=== PATIENT | male | born 1975 | race African-American/Black ===

== ENCOUNTER 2018-03-26 22:55 | Emergency (ER) | payer BC ==
[2018-03-26] MEDS ORDERED: MORPHINE SULFATE 10 MG/ML INJ IV ONE (23:42)
[2018-03-26] MEDS ORDERED: ONDANSETRON 4 MG TAB.RAPDIS PO ONE (23:42)
[2018-03-26] MEDS ORDERED: ACETAMINOPHEN 325 MG TABLET PO ONE (23:45)
--- NOTE | 2018-03-26 23:45 | ER Document Report ---
ED General - General Chief Complaint: Abdominal Pain Stated Complaint: ABDOMINAL PAIN Time Seen by Provider: 03/26/18 23:21 Mode of Arrival: Ambulatory Information source: Patient Notes: 42-year-old male presents emergency department with complaints of left lower quadrant pain that started this morning. He describes the pain is an aching sensation. He denies any radiation of the pain. He denies any alleviating or exacerbating factors. Patient has been taking ibuprofen without relief of symptoms. He denies any testicular pain, penile pain, penile discharge, dysuria , hematuria, melena, hematochezia, vomiting, diarrhea, constipation. Patient states that he has some intermittent nausea. Patient has a history of diverticulitis. He states that his current pain feels similar to previous. TRAVEL OUTSIDE OF THE [place] IN LAST 30 DAYS: No - HPI Onset: This morning Onset/Duration: Gradual Quality of pain: Achy, Throbbing Severity: Mild Associated symptoms: Nausea Exacerbated by: Denies Relieved by: Denies Similar symptoms previously: Yes Recently seen / treated by doctor: No - Related Data Allergies/Adverse Reactions: No Known Allergies Allergy (Verified 02/22/16 11:59) Past Medical History - Social History Smoking Status: Current Every Day Smoker Family History: Reviewed & Not Pertinent - Past Medical History Cardiac Medical History: Denies: Hx Coronary Artery Disease, Hx Heart Attack, Hx Hypertension Pulmonary Medical History: Denies: Hx Asthma, Hx Bronchitis, Hx COPD, Hx Pneumonia Neurological Medical History: Reports: Hx Migraine. Denies: Hx Cerebrovascular Accident, Hx Seizures GI Medical History: Reports: Hx Diverticulitis Musculoskeletal Medical History: Denies Hx Arthritis - Immunizations Hx Diphtheria, Pertussis, Tetanus Vaccination: Yes Review of Systems - Review of Systems Constitutional: No symptoms reported EENT: No symptoms reported Cardiovascular: No symptoms reported Respiratory: No symptoms reported Gastrointestinal: Abdominal pain, Nausea Genitourinary: No symptoms reported Male Genitourinary: No symptoms reported Musculoskeletal: No symptoms reported Skin: No symptoms reported Hematologic/Lymphatic: No symptoms reported Neurological/Psychological: No symptoms reported -: Yes All other systems reviewed and negative Physical Exam - Vital signs Vitals: Temp Pulse Resp BP Pulse Ox 100.1 F 95 18 123/71 98 03/26/18 22:59 03/26/18 22:59 03/26/18 22:59 03/26/18 22:59 03/26/18 22:59 - General Notes: PHYSICAL EXAMINATION: GENERAL: Well-appearing, well-nourished and in no acute distress. HEAD: Atraumatic, normocephalic. EYES: Pupils equal round and reactive to light, extraocular movements intact, sclera anicteric, conjunctiva are normal. ENT: Nares patent, oropharynx clear without exudates. Moist mucous membranes. NECK: Normal range of motion, supple without lymphadenopathy LUNGS: Breath sounds clear to auscultation bilaterally and equal. No wheezes rales or rhonchi. HEART: Regular rate and rhythm without murmurs ABDOMEN: Soft, tenderness to palpation in the LLQ. No rebound or guarding. Musculoskeletal: Normal range of motion, no pitting or edema. No cyanosis. NEUROLOGICAL: Cranial nerves grossly intact. Normal speech, normal gait. Normal sensory, motor exams PSYCH: Normal mood, normal affect. SKIN: Warm, Dry, normal turgor, no rashes or lesions noted. Course - Re-evaluation Re-evalutation: 03/27/18 01:43 Labs and imaging obtained. WBC elevated. CT abd/pel shows diverticulitis. Vitals stable. I discussed admission vs discharge with the patient. He says he wants to try outpatient treatment. He declines admission at this time. He's been able to keep fluids down. Pain is controlled. I will send him home with rx for zofran, norco, ciprofloxacin and flagyl. I will provide surgery referral. Patient told to return immediately if he's having fever, chills, worsening pain , inability to keep fluids down. Patient - Vital Signs Vital signs: Temp Pulse Resp BP Pulse Ox 100.1 F 95 18 123/71 98 03/26/18 22:59 03/26/18 22:59 03/26/18 22:59 03/26/18 22:59 03/26/18 22:59 - Laboratory Result Diagrams: 03/26/18 00:05 03/26/18 00:05 Laboratory results interpreted by me: 03/26/18 00:05 WBC 16.2 H Seg Neutrophils % 82.3 H Lymphocytes % 12.1 L Absolute Neutrophils 13.4 H Discharge - Discharge Clinical Impression: Diverticulitis Condition: Good Disposition: HOME, SELF-CARE Instructions: Diverticulitis ([facility]) Prescriptions: Ciprofloxacin HCl [Cipro 500 mg Tablet] 500 mg PO BID #14 tablet Hydrocodone/Acetaminophen [[place] 5-325 Tablet] 1 each PO Q4 #10 tablet Metronidazole [Flagyl 500 mg Tablet] 500 mg PO BID #14 tablet Ondansetron [Zofran Odt 4 mg Tablet] 1 tab PO Q4H PRN #15 tab.rapdis PRN Reason: For Nausea/Vomiting Forms: Return to Work Referrals: EDGAR LOPEZ MD [MANAGER CLEANING] - Follow up as needed CLARENCE DONALD MD [ACTIVE STAFF] - Follow up as needed
[2018-03-27 00:24] LABS: ABSOLUTE BASOPHILS # (AUTO) 0.1 10^3/uL (0.0-0.2); ABSOLUTE EOSINOPHILS # (AUTO) 0.1 10^3/uL (0.0-0.6); ABSOLUTE MONOCYTES (AUTO) 0.7 10^3/uL (0.1-1.4); ABSOLUTE NEUT (AUTO) 13.4 10^3/uL (1.7-8.2); BASOPHILS % (AUTO) 0.4 % (0-2); EOSINOPHILS % (AUTO) 0.7 % (0-6); HEMATOCRIT 40.4 % (37.9-51.0); HEMOGLOBIN 13.9 g/dL (13.5-17.0); LYMPHOCYTES % (AUTO) 12.1 % (13-45); MEAN CORPUSCULAR HEMOGLOBIN 27.4 pg (27.0-33.4); MEAN CORPUSCULAR HGB CONC 34.3 g/dL (32.0-36.0); MEAN CORPUSCULAR VOLUME 80 fl (80-97); MONOCYTES % (AUTO) 4.5 % (3-13); PLATELET COUNT 258 10^3/uL (150-450); RED BLOOD COUNT 5.05 10^6/uL (4.35-5.55); RED CELL DISTRIBUTION WIDTH 12.6 % (11.5-14.0); SEGMENTED NEUTROPHILS % (AUTO) 82.3 % (42-78); TOTAL CELLS COUNTED % (AUTO) 100 %; WHITE BLOOD COUNT 16.2 10^3/uL (4.0-10.5)
[2018-03-27 00:35] LABS: ALANINE AMINOTRANSFERASE 49 U/L (21-72); ALBUMIN 4.1 g/dL (3.5-5.0); ALKALINE PHOSPHATASE 92 U/L (38-126); ANION GAP 14 (5-19); ASPARTATE AMINO TRANSFERASE 50 U/L (17-59); BILIRUBIN,DIRECT 0.3 mg/dL (0.0-0.4); BILIRUBIN,TOTAL 1.3 mg/dL (0.2-1.3); BLOOD UREA NITROGEN 7 mg/dL (7-20); CALCIUM 9.5 mg/dL (8.4-10.2); CARBON DIOXIDE 25 mmol/L (22-30); CHLORIDE 103 mmol/L (98-107); GLUCOSE 97 mg/dL (75-110); LIPASE 40.3 U/L (23-300); POTASSIUM 3.6 mmol/L (3.6-5.0); SODIUM 141.5 mmol/L (137-145); TOTAL PROTEIN 7.7 g/dL (6.3-8.2)
[2018-03-27 01:23] LABS: APPEARANCE,URINE CLEAR; BILIRUBIN,URINE NEGATIVE (NEGATIVE); COLOR,URINE YELLOW; GLUCOSE, URINE NEGATIVE (NEGATIVE); KETONES,URINE NEGATIVE (NEGATIVE); LEUKOCYTE ESTERASE,URINE NEGATIVE (NEGATIVE); NITRITE,URINE NEGATIVE (NEGATIVE); PROTEIN,URINE NEGATIVE (NEGATIVE); URINE SPECIFIC GRAVITY 1.012; UROBILINOGEN,URINE NEGATIVE mg/dL (<2.0)
--- NOTE | 2018-03-27 01:38 | RADIOLOGY REPORT (SQ) ---
EXAM DESCRIPTION: CT ABDOMEN PELVIS WITH IV CONTRAST COMPLETED DATE/TME: 03/26/2018 23:41 CLINICAL HISTORY: 42 years, Male, LLQ pain COMPARISON: None. TECHNIQUE: Axial CT images of the abdomen and pelvis were obtained after demonstration of IV contrast. DLP 780 Images stored on PACS. All CT scanners at this facility use dose modulation, iterative reconstruction, and/or weight based dosing when appropriate to reduce radiation dose to as low as reasonably achievable (ALARA). [facility]: Dose Right [facility]: CareDose [facility]: Dose Right [facility]: Teradose 4D [facility]: [employer] LIMITATIONS: None. FINDINGS: The lung bases are clear. The liver, gallbladder, pancreas, spleen, and adrenal glands are unremarkable. Both kidneys appear normal. There is no evidence of hydronephrosis. There is no intraperitoneal free air or fluid. There is no lymphadenopathy. The stomach, small bowel, and appendix are normal. Diverticulosis is noted with mild thickening and stranding of the sigmoid colon. No evidence of a perforation or abscess/phlegmon formation. The urinary bladder and prostate gland are unremarkable. There are no lytic or blastic bone lesions IMPRESSION: Mild thickening of the sigmoid colon, likely due to acute diverticulitis. No evidence of a perforation or abscess/phlegmon formation. TECHNICAL DOCUMENTATION: Quality ID # 436: Final reports with documentation of one or more dose reduction techniques (e.g., Automated exposure control, adjustment of the mA and/or kV according to patient size, use of iterative reconstruction technique) 2010 [employer]- All Rights Reserved
[2018-03-27] MEDS ORDERED: METRONIDAZOLE 500 MG TABLET PO ONE (01:41)
[2018-03-27] MEDS ORDERED: CIPROFLOXACIN HCL 500 MG TABLET PO ONE (01:41)
[2018-03-27 01:51] VITALS: BP 122/60
== END 2018-03-27 02:01 | disposition home or self-care (01) ==
LOC: ER 22:55
DX: K57.92 Diverticulitis of intestine, part unspecified, without perforation or abscess without bleeding (principal); R10.32 Left lower quadrant pain; R11.0 Nausea
CPT/HCPCS: 99284; 96374; 36415; 83690; 85025; 80053; 81001; 74177; S0119; J2270

== ENCOUNTER 2018-06-13 07:59 | Emergency (ER) | payer BC ==
[2018-06-13 09:47] LABS: ABSOLUTE EOSINOPHILS # (AUTO) 0.2 10^3/uL (0.0-0.6); ABSOLUTE LYMPHOCYTES (AUTO) 1.6 10^3/uL (0.5-4.7); ABSOLUTE MONOCYTES (AUTO) 0.8 10^3/uL (0.1-1.4); ABSOLUTE NEUT (AUTO) 9.4 10^3/uL (1.7-8.2); BASOPHILS % (AUTO) 0.4 % (0-2); EOSINOPHILS % (AUTO) 1.4 % (0-6); HEMATOCRIT 45.7 % (37.9-51.0); HEMOGLOBIN 15.5 g/dL (13.5-17.0); LYMPHOCYTES % (AUTO) 13.6 % (13-45); MEAN CORPUSCULAR HEMOGLOBIN 27.2 pg (27.0-33.4); MEAN CORPUSCULAR HGB CONC 33.9 g/dL (32.0-36.0); MEAN CORPUSCULAR VOLUME 80 fl (80-97); MONOCYTES % (AUTO) 6.9 % (3-13); PLATELET COUNT 288 10^3/uL (150-450); RED BLOOD COUNT 5.69 10^6/uL (4.35-5.55); RED CELL DISTRIBUTION WIDTH 13.4 % (11.5-14.0); SEGMENTED NEUTROPHILS % (AUTO) 77.7 % (42-78); TOTAL CELLS COUNTED % (AUTO) 100 %; WHITE BLOOD COUNT 12.1 10^3/uL (4.0-10.5)
--- NOTE | 2018-06-13 09:56 | ER Document Report ---
ED General - General Chief Complaint: Abdominal Pain Stated Complaint: ABDOMINAL PAIN Time Seen by Provider: 06/13/18 09:11 Mode of Arrival: Ambulatory Information source: Patient Notes: Patient presents to the emergency department with complaints of abdominal pain that started yesterday. Reports history of diverticulitis. Reports left lower quadrant abdominal pain. Reports he had chills and felt hot yesterday. Also reports he used Metamucil to have a bowel movement and had a small bowel movement yesterday. He did strain. He believes there iwas blood on the tissue when he wiped. Denies fever and vomiting. Denies trauma. Took ibuprofen morning at approximately at 6:00. TRAVEL OUTSIDE OF THE [place] IN LAST 30 DAYS: No - HPI Onset: Yesterday Onset/Duration: Sudden, Persistent Quality of pain: Achy Severity: Severe Pain Level: 5 - Reports pain 5 out of 5 when he moves but he is okay laying still. Associated symptoms: None Exacerbated by: Movement Relieved by: Remaining still Similar symptoms previously: Yes Recently seen / treated by doctor: No - Related Data Allergies/Adverse Reactions: shellfish derived Allergy (Verified 06/13/18 09:14) Past Medical History - General Information source: Patient - Social History Smoking Status: Current Every Day Smoker Chew tobacco use (# tins/day): No Frequency of alcohol use: None Drug Abuse: None Occupation: [employer] Family History: Reviewed & Not Pertinent Patient has suicidal ideation: No Patient has homicidal ideation: No - Past Medical History Cardiac Medical History: Denies: Hx Coronary Artery Disease, Hx Heart Attack, Hx Hypertension Pulmonary Medical History: Reports: Hx Asthma - as child Denies: Hx Bronchitis, Hx COPD, Hx Pneumonia Neurological Medical History: Reports: Hx Migraine. Denies: Hx Cerebrovascular Accident, Hx Seizures Renal/ Medical History: Denies: Hx Peritoneal Dialysis GI Medical History: Reports: Hx Diverticulitis Musculoskeletal Medical History: Denies Hx Arthritis Surgical Hx: Negative - Immunizations Hx Diphtheria, Pertussis, Tetanus Vaccination: Yes Review of Systems - Review of Systems Notes: Review HPI for review of systems., All other systems negative Physical Exam - Vital signs Vitals: Temp Pulse Resp BP Pulse Ox 99.0 F 88 16 123/76 99 06/13/18 08:04 06/13/18 08:04 06/13/18 08:04 06/13/18 08:04 06/13/18 08:04 - Notes Notes: PHYSICAL EXAMINATION: GENERAL: Well-appearing and in no acute distress HEAD: Atraumatic, normocephalic. EYES: Pupils equal round , extraocular movements intact, conjunctiva are normal. ENT: nares patent, . Moist mucous membranes. NECK: Normal range of motion, supple without lymphadenopathy LUNGS: CTAB and equal. No wheezes rales or rhonchi. HEART: Regular rate and rhythm without murmurs ABDOMEN: Soft, LLQ ttp EXTREMITIES: Normal range of motion, NEUROLOGICAL: Cranial nerves grossly intact. Normal sensory/motor exams. PSYCH: Normal mood, normal affect. SKIN: Warm, Dry, normal turgor, no rashes or lesions noted Course - Re-evaluation Re-evalutation: 06/13/18 09:55 Instructed on pending labs and CT. He verbalized understanding. 06/13/18 11:24 CT of with acute sigmoid diverticulitis, WBC minimal elevation with no shift. Patient drinking p.o. fluids. Discussed treatment pain medications antinausea Cipro and Flagyl. Patient reports he does not like narcotics because he is worried about getting addicted. Patient is also requesting name of surgeon again. Patient does feel safe to go home. Patient was instructed on the importance of returning to the emergency department for increasing pain fever vomiting unable to take p.o. fluids. He verbalized understanding to all instructions. - Vital Signs Vital signs: Temp Pulse Resp BP Pulse Ox 98.3 F 66 16 100/52 L 99 06/13/18 11:40 06/13/18 11:40 06/13/18 08:04 06/13/18 11:40 06/13/18 11:40 - Laboratory Result Diagrams: 06/13/18 09:21 06/13/18 09:21 Laboratory results interpreted by me: 06/13/18 06/13/18 09:21 09:21 WBC 12.1 H RBC 5.69 H Absolute Neutrophils 9.4 H Total Protein 8.3 H - Diagnostic Test Radiology reviewed: Image reviewed, Reports reviewed - CT shows acute sigmoid diverticulitis. Discharge - Discharge Clinical Impression: Diverticulitis Abdominal pain Qualifiers: Abdominal location: left lower quadrant Qualified Code(s): R10.32 - Left lower quadrant pain Condition: Stable Disposition: HOME, SELF-CARE Instructions: Abdominal Pain ([facility]), Antinausea Medication ([facility]), Ciprofloxacin ([facility]), Diverticulitis ([facility]), Metronidazole ([facility]), Oral Narcotic Medication ([facility]) Additional Instructions: *You have been evaluated for abdominal pain, diverticulitis *Take medication as prescribed *Follow up with a primary care provider or surgeon within one week *Return to ED immediately for worsening condition, changes, needs, concerns, increased pain, fever *Return to ED if not better in 24 hours Monitor your blood pressure. Your blood pressure was elevated today. This may be because you were anxious, in pain or because you need medication. It is important to follow up with your primary care provider for full evaluation. Prescriptions: Ciprofloxacin HCl [Cipro 500 mg Tablet] 500 mg PO BID #20 tablet Hydrocodone/Acetaminophen [[place] 5-325 mg Tablet] 1 tab PO QID #15 tablet Metronidazole [Flagyl 500 mg Tablet] 500 mg PO BID #14 tablet Promethazine HCl [Phenergan 25 mg Tablet] 25 mg PO ASDIR PRN #12 tablet PRN Reason: Forms: Elevated Blood Pressure, Return to Work Referrals: [facility] [Provider Group] - Follow up in 1 week
--- NOTE | 2018-06-13 10:05 | RADIOLOGY REPORT (SQ) ---
EXAM DESCRIPTION: CT ABD/PELVIS WITH IV ONLY COMPLETED DATE/TIME: 06/13/2018 9:50 am REASON FOR STUDY: lower abd pain, hx diverticulitis, fever COMPARISON: 03/27/2018. TECHNIQUE: CT scan of the abdomen and pelvis performed using helical scanning technique with dynamic intravenous contrast injection. No oral contrast. Images reviewed with lung, soft tissue, and bone windows. Reconstructed coronal and sagittal MPR images reviewed. Delayed images for evaluation of the urinary system also acquired. All images stored on PACS. All CT scanners at this facility use dose modulation, iterative reconstruction, and/or weight based d osing when appropriate to reduce radiation dose to as low as reasonably achievable (ALARA). [facility]: Dose Right [facility]: CareDose [facility]: Dose Right [facility]: Teradose 4D [facility]: [employer] CONTRAST TYPE AND DOSE: contrast/concentration: Isovue 350.00 mg/ml; Total Contrast Delivered: 94.0 ml; Total Saline Delivered: 71.0 ml RENAL FUNCTION: None required. The patient is less than 50 years old. RADIATION DOSE: CT Rad equipment meets quality standard of care and radiation dose reduction techniq ues were employed. CTDIvol: 7.0 - 10.0 mGy. DLP: 1527 mGy-cm.. LIMITATIONS: None. FINDINGS: LOWER CHEST: No significant findings. No nodules or infiltrates. LIVER: Normal size. No masses. No dilated ducts. SPLEEN: Normal size. No focal lesions. PANCREAS: No masses. No significant calcifications. No adjacent inflammation or peripancreatic fluid collections. Pancreatic duct not dilated. GALLBLADDER: No identified stones by CT criteria. No inflammatory changes to suggest cholecystitis. ADRENAL GLANDS: No significant masses or asymmetry. RIGHT KIDNEY AND URETER: No solid masses. No significant calcifications. No hydronephrosis or hyd roureter. LEFT KIDNEY AND URETER: No solid masses. No significant calcifications. No hydronephrosis or hydr oureter. AORTA AND VESSELS: No aneurysm. No dissection. Renal arteries, SMA, celiac without stenosis. RETROPERITONEUM: No retroperitoneal adenopathy, hemorrhage or masses. BOWEL AND PERITONEAL CAVITY: Numerous sigmoid diverticuli with thickening with the wall and inflammat ion in the pericolonic soft tissues. No focal fluid collections. No free fluid or peritoneal masses. APPENDIX: Normal. PELVIS: No mass. No free fluid. Normal bladder. ABDOMINAL WALL: No masses. No hernias. BONES: No significant or acute findings. OTHER: No other significant finding. IMPRESSION: 1. ACUTE SIGMOID DIVERTICULITIS. INFLAMMATORY CHANGES BUT NO ABSCESS AT THIS TIME. 2. NO OTHER SIGNIFICANT OR ACUTE FINDING IN THE ABDOMEN OR PELVIS ON CT SCAN WITH IV CONTRAST. TECHNICAL DOCUMENTATION: JOB ID: [id number] Quality ID # 436: Final reports with documentation of one or more dose reduction techniques (e.g., Au tomated exposure control, adjustment of the mA and/or kV according to patient size, use of iterative reconstruction technique) 2010 [employer]- All Rights Reserved Reading location - IP/workstation name: [email or web address]
[2018-06-13 10:08] LABS: ALANINE AMINOTRANSFERASE 57 U/L (21-72); ALBUMIN 4.7 g/dL (3.5-5.0); ALKALINE PHOSPHATASE 114 U/L (38-126); ANION GAP 10 (5-19); ASPARTATE AMINO TRANSFERASE 38 U/L (17-59); BILIRUBIN,DIRECT 0.1 mg/dL (0.0-0.4); BILIRUBIN,TOTAL 0.8 mg/dL (0.2-1.3); BLOOD UREA NITROGEN 8 mg/dL (7-20); CALCIUM 9.9 mg/dL (8.4-10.2); CARBON DIOXIDE 27 mmol/L (22-30); CHLORIDE 101 mmol/L (98-107); GLUCOSE 94 mg/dL (75-110); LIPASE 63.2 U/L (23-300); POTASSIUM 4.5 mmol/L (3.6-5.0); TOTAL PROTEIN 8.3 g/dL (6.3-8.2)
[2018-06-13 10:55] LABS: APPEARANCE,URINE CLEAR; BILIRUBIN,URINE NEGATIVE (NEGATIVE); COLOR,URINE YELLOW; GLUCOSE, URINE NEGATIVE (NEGATIVE); KETONES,URINE NEGATIVE (NEGATIVE); LEUKOCYTE ESTERASE,URINE NEGATIVE (NEGATIVE); NITRITE,URINE NEGATIVE (NEGATIVE); PROTEIN,URINE NEGATIVE (NEGATIVE); URINE SPECIFIC GRAVITY 1.011; UROBILINOGEN,URINE NEGATIVE mg/dL (<2.0)
[2018-06-13] MEDS ORDERED: ONDANSETRON 4 MG TAB.RAPDIS PO ONE (11:09)
[2018-06-13] MEDS ORDERED: METRONIDAZOLE 500 MG TABLET PO ONE (11:09)
[2018-06-13] MEDS ORDERED: CIPROFLOXACIN HCL 500 MG TABLET PO ONE (11:09)
[2018-06-13 11:45] VITALS: BP 100/52
== END 2018-06-13 11:45 | disposition home or self-care (01) ==
LOC: ER 07:59
DX: K57.92 Diverticulitis of intestine, part unspecified, without perforation or abscess without bleeding (principal); R10.31 Right lower quadrant pain; R10.32 Left lower quadrant pain; F17.200 Nicotine dependence, unspecified, uncomplicated; Z91.013 Allergy to seafood
CPT/HCPCS: 83690; 99284; 36415; 85025; 80053; 81001; 74177; S0119

== ENCOUNTER 2018-08-05 06:44 | Day surgery (SDC) | payer BC ==
[~2018-08-05 06:44] MED LIST: LACTATED RINGERS 1000 ML IV PRN; LIDOCAINE 0.5% INJ-PF (5 MG/ML) 50 ML SDV SUBCUT PRN
[2018-08-05] MEDS ORDERED: PROPOFOL INJ 200 MG/20 ML VIAL IV ONE ×3 (07:21→11:21)
[2018-08-05] MEDS ORDERED: LIDOCAINE 2% INJ-PF (100 MG/5 ML) SYRINGE ONE (07:21)
[2018-08-05] MEDS ORDERED: PROMETHAZINE HCL INJ 25 MG/1 ML VIAL IV PRN ×2 (09:48)
[2018-08-05] MEDS ORDERED: DIPHENHYDRAMINE HCL 50 MG/ML VIAL IV PRN (09:48)
--- NOTE | 2018-08-05 09:58 | Discharge Summary ---
Discharge Summary (SDC) - Discharge Final Diagnosis: #1 colon polyp. #2 diverticulosis Date of Surgery: 08/05/18 Discharge Date: 08/05/18 Condition: Stable Treatment or Instructions: Discharge home. Diet as tolerated. Activity: Nonstrenuous. Follow-up with me in 2 weeks. Discharge Diet: As Tolerated Respiratory Treatments at Home: Deep Breathing/Coughing, Incentive Spirometer Discharge Activity: Balance Activity w/Rest Home Care Assistance: None Needed Report the Following to Your Physician Immediately: Shortness of Breath, Nausea, Vomiting, Increase in Pain, Fever over 101 Degrees, Unusual Bleeding, Redness
--- NOTE | 2018-08-05 10:02 | Operative Report ---
Nonrecallable Operative Report DATE OF SURGERY: 08/05/18 PREOPERATIVE DIAGNOSIS: History of diverticulitis POSTOPERATIVE DIAGNOSIS: 1. Same as above. 2. Large, sessile polyp of the cecum removed piecemeal OPERATION: 1. Colonoscopy to the cecum. 2. Snare polypectomy of large, sessile cecal polyp (removed in piecemeal fashion) SURGEON: LENIN DURAND ANESTHESIA: LMAC TISSUE REMOVED OR ALTERED: Large, sessile polyp removed in piecemeal fashion COMPLICATIONS: None apparent ESTIMATED BLOOD LOSS: Minimal PROCEDURE: Procedure in detail: After informed consent was obtained, the patient was brought to the operating room and laid in the left lateral decubitus position. The endoscope was passed up the rectum, sigmoid colon, descending colon, across the transverse colon, down the ascending colon, and into the cecum. The ileocecal valve and appendiceal orifice were identified. The scope was then withdrawn, circumferentially noting the mucosa. The prep was very good. In the cecum there was a large, flat sessile polyp. It was felt that the polyp could be removed piecemeal using a hexagonal snare. This was successfully performed. Once no more adenomatous tissue could be identified, the scope was withdrawn past the ascending colon, transverse colon, descending colon, and into the sigmoid colon. In the sigmoid colon scattered diverticula were found throughout. There is no sign of active diverticulitis. The scope was withdrawn down the sigmoid colon and into the rectum. A retroflexion maneuver was performed, noting no significant internal hemorrhoids. The scope was straightened, air was suctioned from the rectum, the scope was removed, and the procedure was concluded. Condition: Stable. Recommendation: Repeat colonoscopy in 3-6 months to ensure complete removal of large, sessile cecal polyp.
[2018-08-05 11:21] VITALS: BP 107/77
== END 2018-08-05 11:00 | disposition home or self-care (01) ==
LOC: OROUT 06:44
PROVIDERS: ATTEND Surgery
DX: K57.30 Diverticulosis of large intestine without perforation or abscess without bleeding (principal); F17.210 Nicotine dependence, cigarettes, uncomplicated; D12.0 Benign neoplasm of cecum
CPT/HCPCS: 45385; 88305 ×2; J2001; J2704; 811

== ENCOUNTER 2018-08-06 16:48 | Inpatient (IN) | payer BC ==
[2018-08-06] MEDS ORDERED: MORPHINE SULFATE 10 MG/ML INJ IV ONE (16:56)
[2018-08-06] MEDS ORDERED: HYDROMORPHONE HCL INJ/PF 2 MG/ML AMPULE IV ONE (17:14)
[2018-08-06] MEDS ORDERED: DIPHENHYDRAMINE HCL 50 MG/ML VIAL IV ONE (17:19)
--- NOTE | 2018-08-06 17:35 | ER Document Report ---
ED General - General Chief Complaint: Abdominal Pain Stated Complaint: ABDOMINAL PAIN Time Seen by Provider: 08/06/18 17:05 Mode of Arrival: Ambulatory Information source: Patient, Relative, [facility] Records Notes: 42-year-old male with a history of diverticulitis presents with complaint of right lower quadrant abdominal pain that started last night. Patient underwent a colonoscopy, polypectomy yesterday with Dr. Galindo. states that patient was doing well until approximately 10 PM when he started complaining of right lower quadrant abdominal pain. Patient was given Tylenol for this pain and this morning when he tried to go to work the pain became worse. Patient has been passing gas denies any black or bloody stools but states a few hours prior to arrival the pain became so intense he ate was unable to tolerate it. They did touch base with Dr. Galindo who ordered a stat CT of the abdomen and pelvis. TRAVEL OUTSIDE OF THE [place] IN LAST 30 DAYS: Yes - Related Data Allergies/Adverse Reactions: shellfish derived Allergy (Verified 08/05/18 07:10) Past Medical History - General Information source: Patient, Relative - Social History Smoking Status: Never Smoker Frequency of alcohol use: None Lives with: Spouse/Significant other Family History: Reviewed & Not Pertinent - Past Medical History Cardiac Medical History: Denies: Hx Coronary Artery Disease, Hx Heart Attack, Hx Hypertension Pulmonary Medical History: Reports: Hx Asthma - as child Denies: Hx Bronchitis, Hx COPD, Hx Pneumonia Neurological Medical History: Reports: Hx Migraine. Denies: Hx Cerebrovascular Accident, Hx Seizures Renal/ Medical History: Denies: Hx Peritoneal Dialysis GI Medical History: Reports: Hx Diverticulitis Musculoskeletal Medical History: Denies Hx Arthritis - Immunizations Hx Diphtheria, Pertussis, Tetanus Vaccination: Yes Review of Systems - Review of Systems Notes: REVIEW OF SYSTEMS: CONSTITUTIONAL : Denies fever, chills, or sweats. Denies recent illness. Denies weight loss, recent hospitalizations. EENT: Denies visual changes, eye pain. Denies sore throat, oral lesions, difficulty swallowing. CARDIOVASCULAR: Denies chest pain. Denies palpitations. Denies lower extremity edema. RESPIRATORY: Denies cough. Denies shortness of breath, wheezing. GASTROINTESTINAL: Denies abdominalr distention. Denies vomiting, or diarrhea. Denies blood in vomitus, stools, or per rectum. Denies black, tarry stools. Denies constipation. GENITOURINARY: Denies difficulty urinating, painful urination, frequency, blood in urine, testicular pain or penile discharge. MUSCULOSKELETAL: Denies back or neck pain or stiffness. Denies joint pain or swelling. SKIN: Denies rash, lesions or sores. HEMATOLOGIC : Denies easy bruising or bleeding. LYMPHATIC: Denies swollen glands. NEUROLOGICAL: Denies confusion or altered mental status. Denies loss of con sciousness. Denies dizziness or lightheadedness. Denies headache. Denies weakness or paralysis. Denies problems difficulty with ambulation, slurred speech. Denies sensory loss, numbness, or tingling. Denies seizures. PSYCHIATRIC: Denies anxiety or stress. Denies depression, suicidal ideation, or Physical Exam - Vital signs Vitals: Temp Resp BP Pulse Ox 97.9 F 18 137/85 H 99 08/06/18 16:50 08/06/18 16:50 08/06/18 16:50 08/06/18 16:50 - Notes Notes: General appearance: PRESENT: mild distress - Abdominal pain Head exam: PRESENT: atraumatic, normocephalic Eye exam: PRESENT: EOMI, PERRLA. ABSENT: scleral icterus Mouth exam: PRESENT: moist, neck supple Teeth exam: ABSENT: poor dentation Neck exam: ABSENT: meningismus, tenderness, thyromegaly, tracheal deviation Respiratory exam: PRESENT: clear to auscultation len, unlabored. ABSENT: chest wall tenderness, tachypnea, wheezes Cardiovascular exam: PRESENT: RRR Pulses: PRESENT: normal radial pulses Vascular exam: PRESENT: normal capillary refill. ABSENT: pallor GI/Abdominal exam: PRESENT: guarding - Voluntary, right lower quadrant, soft, tenderness - Right lower quadrant. ABSENT: distended, rigid Rectal exam: PRESENT: deferred Extremities exam: ABSENT: clubbing Musculoskeletal exam: ABSENT: deformity Neurological exam: PRESENT: alert, awake, oriented to person, oriented to place, oriented to time, oriented to situation Psychiatric exam: ABSENT: agitated, anxious, depressed Focused psych exam: ABSENT: delusional Skin exam: ABSENT: cyanosis, erythema, jaundice Course - Re-evaluation Re-evalutation: 08/07/18 00:10 Laboratory 08/06/18 08/06/18 16:50 16:50 WBC Cancelled RBC Cancelled Hgb Cancelled Hct Cancelled MCV Cancelled MCH Cancelled MCHC Cancelled RDW Cancelled Plt Count Cancelled Seg Neutrophils % Cancelled Lymphocytes % Cancelled Monocytes % Cancelled Eosinophils % Cancelled Basophils % Cancelled Absolute Neutrophils Cancelled Absolute Lymphocytes Cancelled Absolute Monocytes Cancelled Absolute Eosinophils Cancelled Absolute Basophils Cancelled Platelet Estimate Cancelled Sodium Cancelled Potassium Cancelled Chloride Cancelled Carbon Dioxide Cancelled Anion Gap Cancelled BUN Cancelled Creatinine Cancelled Est GFR ( Amer) Cancelled Est GFR (Non-Af Amer) Cancelled Glucose Cancelled Calcium Cancelled Slides for Path Review Cancelled Temp Pulse Resp BP Pulse Ox 99.1 F 84 18 119/71 97 08/06/18 22:53 08/06/18 22:53 08/06/18 22:53 08/06/18 22:53 08/06/18 22:53 42 year old male postoperative day 1 status post colonoscopy with polypectomy at the cecum. The patient reports increasing abdominal pain starting yesterday evening in his right lower quadrant, and becoming severe. The patient presented to his surgeon's office today and was sent to the hospital for a CAT scan. The patient had such excruciating pain while drinking oral contrast that he was sent to the emergency department. The patient has undergone CT scanning. Dr. Galindo presents at the bedside and examined the patient admitted him for observation overnight. States that he did review the CAT scan that did not any evidence of perforation, appendicitis. 08/07/18 00:11 - Vital Signs Vital signs: Temp Pulse Resp BP Pulse Ox 99.1 F 84 18 119/71 97 08/06/18 22:53 08/06/18 22:53 08/06/18 22:53 08/06/18 22:53 08/06/18 22:53 - Laboratory Result Diagrams: 08/06/18 19:01 08/06/18 19:01 - Diagnostic Test Radiology reviewed: Image reviewed Discharge - Discharge Clinical Impression: Abdominal pain Qualifiers: Abdominal location: right lower quadrant Qualified Code(s): R10.31 - Right lower quadrant pain Condition: Good Disposition: ADMITTED OBSERVATION Admitting Provider: Surgicalist Unit Admitted: Surgical Floor
[2018-08-06] MEDS ORDERED: ONDANSETRON HCL INJ/PF 4 MG/2 ML SDV IV PRN (18:00)
--- NOTE | 2018-08-06 18:19 | PDOC H&P ---
History of Present Illness Admission Date/PCP: LENIN DURAND MD Patient complains of: Right lower quadrant pain History of Present Illness: KALPESH ERICKSON is a 42 year old male postoperative day 1 status post colonoscopy with polypectomy at the cecum. The patient reports increasing abdominal pain starting this morning in his right lower quadrant, and becoming severe. The patient presented to the office today and was sent for a CT scan of the abdomen and pelvis with contrast. The patient had such excruciating pain while drinking oral contrast that he was sent to the emergency department. The patient has undergone CT scanning. The patient reports his pain is sharp and stabbing and situated in his right lower quadrant. The the pain does not radiate. Palpation makes his pain worse. Nothing makes it better. The patient denies shortness of breath, fevers, chills, chest pain, nausea, vomiting, melena, hematochezia, hematemesis, dizziness, orthostasis, blurry vision, fatigue, or malaise. Past Medical History Cardiac Medical History: Denies: Coronary Artery Disease, Myocardial Infarction, Hypertension Pulmonary Medical History: Reports: Asthma - as child Denies: Bronchitis, Chronic Obstructive Pulmonary Disease (COPD), Pneumonia Neurological Medical History: Reports: Migraine Denies: Seizures GI Medical History: Reports: Diverticulitis Musculoskeltal Medical History: Denies: Arthritis Hematology: Denies: Anemia Past Surgical History Past Surgical History: Reports: Other - Colonoscopy, cataract surgery Social History Smoking Status: Current Every Day Smoker Cigarettes Packs Per Day: 1 Frequency of Alcohol Use: Occasional Hx Recreational Drug Use: No Family History Family History: Reviewed & Not Pertinent Parental Family History Reviewed: Yes Children Family History Reviewed: Yes Sibling(s) Family History Reviewed.: Yes Medication/Allergy Home Medications: Psyllium Husk [Metamucil] 0.4 gm PO ASDIR PRN 07/24/18 Allergies/Adverse Reactions: shellfish derived Allergy (Verified 08/05/18 07:10) Review of Systems Constitutional: ABSENT: anorexia, chills, fatigue, fever(s), headache(s), night sweats Eyes: ABSENT: visual disturbances Ears: ABSENT: hearing changes Nose, Mouth, and Throat: ABSENT: sore throat Cardiovascular: ABSENT: chest pain, dyspnea on exertion Respiratory: ABSENT: cough, dyspnea Gastrointestinal: PRESENT: abdominal pain. ABSENT: diarrhea, dysphagia, heartburn, hematemesis, hematochezia, melena, nausea, vomiting Musculoskeletal: ABSENT: back pain Integumentary: ABSENT: pruritus, rash Neurological: ABSENT: confusion, convulsions, dizziness Psychiatric: ABSENT: anxiety, depression Hematologic/Lymphatic: ABSENT: easy bleeding, easy bruising Physical Exam Vital Signs: Temp Pulse Resp BP Pulse Ox 97.9 F 18 137/85 H 99 08/06/18 16:50 08/06/18 16:50 08/06/18 16:50 08/06/18 16:50 Intake & Output 08/05/18 08/06/18 08/07/18 06:59 06:59 06:59 Weight 77.111 kg General appearance: PRESENT: mild distress - Abdominal pain Head exam: PRESENT: atraumatic, normocephalic Eye exam: PRESENT: EOMI, PERRLA. ABSENT: scleral icterus Mouth exam: PRESENT: moist, neck supple Teeth exam: ABSENT: poor dentation Neck exam: ABSENT: meningismus, tenderness, thyromegaly, tracheal deviation Respiratory exam: PRESENT: clear to auscultation len, unlabored. ABSENT: chest wall tenderness, tachypnea, wheezes Cardiovascular exam: PRESENT: RRR Pulses: PRESENT: normal radial pulses Vascular exam: PRESENT: normal capillary refill. ABSENT: pallor GI/Abdominal exam: PRESENT: guarding - Voluntary, right lower quadrant, soft, tenderness - Right lower quadrant. ABSENT: distended, rigid Rectal exam: PRESENT: deferred Extremities exam: ABSENT: clubbing Musculoskeletal exam: ABSENT: deformity Neurological exam: PRESENT: alert, awake, oriented to person, oriented to place, oriented to time, oriented to situation Psychiatric exam: ABSENT: agitated, anxious, depressed Focused psych exam: ABSENT: delusional Skin exam: ABSENT: cyanosis, erythema, jaundice Assessment & Plan - Diagnosis (1) S/P colonoscopy with polypectomy Is this a current diagnosis for this admission?: Yes (2) Abdominal pain Qualifiers: Abdominal location: right lower quadrant Qualified Code(s): R10.31 - Right lower quadrant pain Is this a current diagnosis for this admission?: Yes - Plan Summary Plan Summary: This is a 42-year-old male status post colonoscopy with polypectomy. The patient reports increasing amounts of right lower quadrant pain throughout the day today. His pain is severe. The patient was sent for a stat CT scan. I have personally reviewed the images of the CT scan, however the official report is not available at this time. The patient has a slight amount of thickening of the wall of the cecum. His appendix appears normal and filled with air. There is no free fluid or free air. Labs have been drawn and are pending (CBC and BMP). 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 I will start the patient on intravenous antibiotics and IV pain medicine. I will observe the patient overnight. Currently the patient's blood pressure is normal, and his heart rate is in the lower 90s. He is afebrile, and he has no signs of systemic toxicity. If the patient improves with bowel rest and antibiotics, he may be fit for discharge tomorrow. If his condition worsens, he may require ileocecectomy. Close observation will be initiated. I have discussed the case with Dr. Hendrix who is on-call tonight. He is aware of the patient. I have urged the nursing staff to contact me or Dr. Hendrix if the patient's condition worsens.
[2018-08-06] MEDS: PIPERACILLIN SODIUM/TAZOBACTAM 3.375 GM in NORMAL SALINE 100 ML IV SCH ×2 (18:46→23:17)
[2018-08-06 19:10] LABS: ABSOLUTE EOSINOPHILS # (AUTO) 0.1 10^3/uL (0.0-0.6); ABSOLUTE LYMPHOCYTES (AUTO) 1.6 10^3/uL (0.5-4.7); ABSOLUTE MONOCYTES (AUTO) 0.7 10^3/uL (0.1-1.4); ABSOLUTE NEUT (AUTO) 8.1 10^3/uL (1.7-8.2); BASOPHILS % (AUTO) 0.4 % (0-2); EOSINOPHILS % (AUTO) 1.3 % (0-6); HEMATOCRIT 38.4 % (37.9-51.0); HEMOGLOBIN 13.4 g/dL (13.5-17.0); LYMPHOCYTES % (AUTO) 15.3 % (13-45); MEAN CORPUSCULAR HEMOGLOBIN 27.7 pg (27.0-33.4); MEAN CORPUSCULAR HGB CONC 34.9 g/dL (32.0-36.0); MEAN CORPUSCULAR VOLUME 79 fl (80-97); MONOCYTES % (AUTO) 6.6 % (3-13); PLATELET COUNT 226 10^3/uL (150-450); RED BLOOD COUNT 4.84 10^6/uL (4.35-5.55); RED CELL DISTRIBUTION WIDTH 13.1 % (11.5-14.0); SEGMENTED NEUTROPHILS % (AUTO) 76.4 % (42-78); TOTAL CELLS COUNTED % (AUTO) 100 %; WHITE BLOOD COUNT 10.5 10^3/uL (4.0-10.5)
[2018-08-06] MEDS: DEXTROSE 5%-LACTATED RINGERS 1,000 ML IV PRN (20:25)
[2018-08-06] MEDS: HYDROMORPHONE HCL INJ/PF 2 MG/ML AMPULE IV PRN (20:30)
[2018-08-06 20:45] LABS: ANION GAP 10 (5-19); BLOOD UREA NITROGEN 9 mg/dL (7-20); CALCIUM 9.5 mg/dL (8.4-10.2); CARBON DIOXIDE 24 mmol/L (22-30); CHLORIDE 109 mmol/L (98-107); GLUCOSE 108 mg/dL (75-110); POTASSIUM 4.3 mmol/L (3.6-5.0); SODIUM 142.9 mmol/L (137-145)
[2018-08-06] MEDS ORDERED: NICOTINE 21 MG/24 HR PATCH.TD24 TD ONE (23:15)
[2018-08-07] MEDS ORDERED: ACETAMINOPHEN 325 MG TABLET PO PRN (00:18)
[2018-08-07] MEDS: HYDROMORPHONE HCL INJ/PF 2 MG/ML AMPULE IV PRN ×6 (00:31→22:38)
--- NOTE | 2018-08-07 00:56 | RADIOLOGY REPORT (SQ) ---
EXAM DESCRIPTION: CT ABDOMEN PELVIS WITH IV CONTRAST COMPLETED DATE/TME: 08/06/2018 00:00 CLINICAL HISTORY: 42 years, Male, pain COMPARISON: Prior CT from 06/13/2018 TECHNIQUE: 403 Images stored on PACS. All CT scanners at this facility use dose modulation, iterative reconstruction, and/or weight based dosing when appropriate to reduce radiation dose to as low as reasonably achievable (ALARA). [facility]: Dose Right [facility]: CareDose [facility]: Dose Right [facility]: Teradose 4D [facility]: Metrekare LIMITATIONS: None. FINDINGS: Limited evaluation of the lung bases is unremarkable. Osseous structures are grossly intact. The liver, spleen, adrenal glands, pancreas, kidneys are unremarkable. The gallbladder is present. No evidence for bowel obstruction. Wall thickening of the sigmoid colon with multiple sigmoid diverticuli. Surrounding inflammatory change consistent with diverticulitis. No discrete abscess. No free air or free fluid. The prostate appears mildly enlarged. Correlate with PSA levels. Urinary bladder is not distended, limiting its evaluation. Normal appendix. IMPRESSION: Acute sigmoid diverticulitis. No abscess, free air, or free fluid. TECHNICAL DOCUMENTATION: Quality ID # 436: Final reports with documentation of one or more dose reduction techniques (e.g., Automated exposure control, adjustment of the mA and/or kV according to patient size, use of iterative reconstruction technique) copyright 2010 [employer]- All Rights Reserved
[2018-08-07] MEDS: PIPERACILLIN SODIUM/TAZOBACTAM 3.375 GM in NORMAL SALINE 100 ML IV SCH ×4 (05:06→23:36)
--- NOTE | 2018-08-07 07:28 | PDOC PROGRESS REPORT ---
Subjective Progress Note for:: 08/07/18 Subjective:: 42 y/o M with right lower quadrant pain after colonoscopy with polypectomy. His pain is unchanged overnight. He had low-grade fevers of 99.9 overnight. He denies CP, SOB, N/V, headache. His pain is localized to the right lower quadrant. Reason For Visit: ABDOMINAL PAIN AFTER COLONSCOPY, POLYECTOMY Physical Exam Vital Signs: Temp Pulse Resp BP Pulse Ox 98.9 F 82 18 117/65 100 08/07/18 05:03 08/07/18 05:03 08/07/18 05:03 08/07/18 05:03 08/07/18 05:03 Intake & Output 08/06/18 08/07/18 08/08/18 06:59 06:59 06:59 Intake Total 300 Output Total 1000 Balance -700 Weight 77 kg General appearance: PRESENT: no acute distress Head exam: PRESENT: atraumatic, normocephalic Eye exam: PRESENT: EOMI, PERRLA. ABSENT: scleral icterus Teeth exam: ABSENT: poor dentation Neck exam: ABSENT: meningismus, tenderness, thyromegaly, tracheal deviation Respiratory exam: PRESENT: clear to auscultation len Cardiovascular exam: PRESENT: RRR Pulses: PRESENT: normal radial pulses Vascular exam: PRESENT: normal capillary refill. ABSENT: pallor GI/Abdominal exam: PRESENT: guarding - focal RLQ voluntary guarding, soft, tenderness - RLQ. ABSENT: distended, rebound, rigid Rectal exam: PRESENT: deferred Extremities exam: ABSENT: clubbing Neurological exam: PRESENT: alert, awake, oriented to person, oriented to place, oriented to time, oriented to situation, CN II-XII grossly intact Psychiatric exam: ABSENT: agitated, anxious, depressed Skin exam: ABSENT: cyanosis, erythema, jaundice Results Laboratory Results: 08/06/18 08/06/18 08/06/18 16:50 16:50 19:01 WBC Cancelled 10.5 RBC Cancelled 4.84 Hgb Cancelled 13.4 L Hct Cancelled 38.4 MCV Cancelled 79 L MCH Cancelled 27.7 MCHC Cancelled 34.9 RDW Cancelled 13.1 Plt Count Cancelled 226 Seg Neutrophils % Cancelled 76.4 Lymphocytes % Cancelled 15.3 Monocytes % Cancelled 6.6 Eosinophils % Cancelled 1.3 Basophils % Cancelled 0.4 Absolute Neutrophils Cancelled 8.1 Absolute Lymphocytes Cancelled 1.6 Absolute Monocytes Cancelled 0.7 Absolute Eosinophils Cancelled 0.1 Absolute Basophils Cancelled 0.0 Sodium Cancelled Potassium Cancelled Chloride Cancelled Carbon Dioxide Cancelled Anion Gap Cancelled BUN Cancelled Creatinine Cancelled Est GFR ( Amer) Cancelled Est GFR (Non-Af Amer) Cancelled Glucose Cancelled Calcium Cancelled 08/06/18 19:01 WBC RBC Hgb Hct MCV MCH MCHC RDW Plt Count Seg Neutrophils % Lymphocytes % Monocytes % Eosinophils % Basophils % Absolute Neutrophils Absolute Lymphocytes Absolute Monocytes Absolute Eosinophils Absolute Basophils Sodium 142.9 Potassium 4.3 Chloride 109 H Carbon Dioxide 24 Anion Gap 10 BUN 9 Creatinine 1.13 Est GFR ( Amer) > 60 Est GFR (Non-Af Amer) > 60 Glucose 108 Calcium 9.5 Impressions: Abdomen/Pelvis CT 08/06/18 00:00 IMPRESSION: Acute sigmoid diverticulitis. No abscess, free air, or free fluid. TECHNICAL DOCUMENTATION: Quality ID # 436: Final reports with documentation of one or more dose reduction techniques (e.g., Automated exposure control, adjustment of the mA and/or kV according to patient size, use of iterative reconstruction technique) copyright 2011 [employer]- All Rights Reserved Assessment & Plan - Diagnosis (1) S/P colonoscopy with polypectomy Is this a current diagnosis for this admission?: Yes (2) Abdominal pain Qualifiers: Abdominal location: right lower quadrant Qualified Code(s): R10.31 - Right lower quadrant pain Is this a current diagnosis for this admission?: Yes - Plan Summary Plan Summary: 42 y/o M s/p colonoscopy with polypectomy. He continues to have focal RLQ pain. He does not exhibit peritonitis on exam. Currently his vital signs are normal, with the exception of low-grade fever overnight. Labs are pending. continue close observation and antibiotics. If decompensation is identified surgical exploration may be required.
[2018-08-07 07:34] LABS: ANION GAP 8 (5-19); BLOOD UREA NITROGEN 8 mg/dL (7-20); CALCIUM 9.2 mg/dL (8.4-10.2); CARBON DIOXIDE 28 mmol/L (22-30); CHLORIDE 106 mmol/L (98-107); GLUCOSE 92 mg/dL (75-110); SODIUM 141.7 mmol/L (137-145)
[2018-08-07 07:41] LABS: ABSOLUTE BASOPHILS # (AUTO) 0.1 10^3/uL (0.0-0.2); ABSOLUTE EOSINOPHILS # (AUTO) 0.3 10^3/uL (0.0-0.6); ABSOLUTE LYMPHOCYTES (AUTO) 2.7 10^3/uL (0.5-4.7); ABSOLUTE MONOCYTES (AUTO) 0.8 10^3/uL (0.1-1.4); BASOPHILS % (AUTO) 0.7 % (0-2); EOSINOPHILS % (AUTO) 3.3 % (0-6); HEMATOCRIT 39.2 % (37.9-51.0); HEMOGLOBIN 13.8 g/dL (13.5-17.0); LYMPHOCYTES % (AUTO) 30.4 % (13-45); MEAN CORPUSCULAR HEMOGLOBIN 28.2 pg (27.0-33.4); MEAN CORPUSCULAR HGB CONC 35.2 g/dL (32.0-36.0); MEAN CORPUSCULAR VOLUME 80 fl (80-97); PLATELET COUNT 200 10^3/uL (150-450); RED CELL DISTRIBUTION WIDTH 13.4 % (11.5-14.0); SEGMENTED NEUTROPHILS % (AUTO) 56.6 % (42-78); TOTAL CELLS COUNTED % (AUTO) 100 %; WHITE BLOOD COUNT 8.9 10^3/uL (4.0-10.5)
[2018-08-07] MEDS: NICOTINE 21 MG/24 HR PATCH.TD24 TD SCH (09:22)
[2018-08-07] MEDS: DEXTROSE 5%-LACTATED RINGERS 1,000 ML IV PRN (13:46)
[2018-08-08] MEDS: HYDROMORPHONE HCL INJ/PF 2 MG/ML AMPULE IV PRN ×3 (03:03→12:00)
[2018-08-08] MEDS: PIPERACILLIN SODIUM/TAZOBACTAM 3.375 GM in NORMAL SALINE 100 ML IV SCH ×2 (05:19→12:20)
[2018-08-08] MEDS: DEXTROSE 5%-LACTATED RINGERS 1,000 ML IV PRN (05:19)
[2018-08-08 07:15] LABS: ABSOLUTE EOSINOPHILS # (AUTO) 0.3 10^3/uL (0.0-0.6); ABSOLUTE LYMPHOCYTES (AUTO) 2.1 10^3/uL (0.5-4.7); ABSOLUTE MONOCYTES (AUTO) 0.7 10^3/uL (0.1-1.4); ABSOLUTE NEUT (AUTO) 3.9 10^3/uL (1.7-8.2); BASOPHILS % (AUTO) 0.6 % (0-2); HEMATOCRIT 38.2 % (37.9-51.0); HEMOGLOBIN 13.4 g/dL (13.5-17.0); LYMPHOCYTES % (AUTO) 30.3 % (13-45); MEAN CORPUSCULAR HEMOGLOBIN 27.8 pg (27.0-33.4); MEAN CORPUSCULAR VOLUME 79 fl (80-97); MONOCYTES % (AUTO) 9.3 % (3-13); PLATELET COUNT 221 10^3/uL (150-450); RED BLOOD COUNT 4.81 10^6/uL (4.35-5.55); RED CELL DISTRIBUTION WIDTH 12.6 % (11.5-14.0); SEGMENTED NEUTROPHILS % (AUTO) 55.8 % (42-78); TOTAL CELLS COUNTED % (AUTO) 100 %
[2018-08-08 07:45] LABS: ANION GAP 6 (5-19); BLOOD UREA NITROGEN 6 mg/dL (7-20); CALCIUM 9.3 mg/dL (8.4-10.2); CARBON DIOXIDE 31 mmol/L (22-30); CHLORIDE 104 mmol/L (98-107); GLUCOSE 82 mg/dL (75-110); POTASSIUM 3.9 mmol/L (3.6-5.0); SODIUM 141.1 mmol/L (137-145)
--- NOTE | 2018-08-08 07:54 | PDOC PROGRESS REPORT ---
Subjective Progress Note for:: 08/08/18 Subjective:: 42 y/o M with right lower quadrant pain after colonoscopy with polypectomy. His pain has improved overnight. He reports passing flatus. He denies CP, SOB, N/V, headache. His pain is still localized to the right lower quadrant. Reason For Visit: ABDOMINAL PAIN AFTER COLONSCOPY, POLYECTOMY Physical Exam Vital Signs: Temp Pulse Resp BP Pulse Ox 99.4 F 76 18 130/74 H 98 08/08/18 03:03 08/08/18 03:03 08/08/18 03:03 08/08/18 03:03 08/08/18 03:03 Intake & Output 08/07/18 08/08/18 08/09/18 06:59 06:59 06:59 Intake Total 1300 1300 Output Total 1000 350 Balance 300 950 Weight 77 kg 81.5 kg General appearance: PRESENT: no acute distress, cooperative Head exam: PRESENT: atraumatic, normocephalic Eye exam: PRESENT: EOMI, PERRLA. ABSENT: scleral icterus Mouth exam: PRESENT: moist, neck supple Teeth exam: ABSENT: poor dentation Neck exam: ABSENT: meningismus, tenderness, thyromegaly, tracheal deviation Respiratory exam: ABSENT: rhonchi, stridor Cardiovascular exam: PRESENT: RRR Vascular exam: PRESENT: normal capillary refill GI/Abdominal exam: PRESENT: soft, tenderness - RLQ. ABSENT: distended, firm, guarding Rectal exam: PRESENT: deferred Extremities exam: ABSENT: clubbing Musculoskeletal exam: ABSENT: deformity Neurological exam: PRESENT: alert, awake, oriented to person, oriented to place, oriented to time Psychiatric exam: ABSENT: agitated, anxious, depressed Focused psych exam: ABSENT: delusional Skin exam: ABSENT: cyanosis Results Laboratory Results: 08/08/18 06:51 08/08/18 06:51 08/08/18 08/08/18 06:51 06:51 WBC 7.0 RBC 4.81 Hgb 13.4 L Hct 38.2 MCV 79 L MCH 27.8 MCHC 35.0 RDW 12.6 Plt Count 221 Seg Neutrophils % 55.8 Lymphocytes % 30.3 Monocytes % 9.3 Eosinophils % 4.0 Basophils % 0.6 Absolute Neutrophils 3.9 Absolute Lymphocytes 2.1 Absolute Monocytes 0.7 Absolute Eosinophils 0.3 Absolute Basophils 0.0 Sodium 141.1 Potassium 3.9 Chloride 104 Carbon Dioxide 31 H Anion Gap 6 BUN 6 L Creatinine 1.26 H Est GFR ( Amer) > 60 Est GFR (Non-Af Amer) > 60 Glucose 82 Calcium 9.3 Impressions: Abdomen/Pelvis CT 08/06/18 00:00 IMPRESSION: Acute sigmoid diverticulitis. No abscess, free air, or free fluid. TECHNICAL DOCUMENTATION: Quality ID # [id number]: Final reports with documentation of one or more dose reduction techniques (e.g., Automated exposure control, adjustment of the mA and/or kV according to patient size, use of iterative reconstruction technique) copyright 2011 [employer]- All Rights Reserved Assessment & Plan - Diagnosis (1) S/P colonoscopy with polypectomy Is this a current diagnosis for this admission?: Yes (2) Abdominal pain Qualifiers: Abdominal location: right lower quadrant Qualified Code(s): R10.31 - Right lower quadrant pain Is this a current diagnosis for this admission?: Yes - Plan Summary Plan Summary: 42 y/o M with polypectomy syndrome. WBC's and diff consistently normal, pt reports pain is improving. He is hungry and requesting a diet. Advance to full liquids. Start stool softeners. Cont Abx.
[2018-08-08] MEDS: NICOTINE 21 MG/24 HR PATCH.TD24 TD SCH (10:48)
--- NOTE | 2018-08-08 18:26 | PDOC DISCHARGE SUMMARY ---
General - Admit/Disc Date/PCP Admission Date/Primary Care Provider: 08/08/18 11:56 Discharge Date: 08/08/18 - Discharge Diagnosis (1) S/P colonoscopy with polypectomy Is this a current diagnosis for this admission?: Yes (2) Abdominal pain Is this a current diagnosis for this admission?: Yes - Additional Information Discharge Diet: As Tolerated Discharge Activity: Balance Activity w/Rest Home Medications: Latanoprost [Xalatan 0.005% Oph Soln 2.5 ml] 1 drop OU QHS 08/06/18 History of Present Illness History of Present Illness: KALPESH ERICKSON is a 42 year old male postoperative day 1 status post colonoscopy with polypectomy at the cecum. The patient reports increasing abdominal pain starting the day after colonoscopy in his right lower quadrant, that became severe. The patient presented to the office and was sent for a CT scan of the abdomen and pelvis with contrast. The patient had such excruciating pain while drinking oral contrast that he was sent to the emergency department. The patient reports his pain is sharp and stabbing and situated in his right lower quadrant. The the pain does not radiate. Palpation makes his pain worse. Nothing makes it better. At the time of admission the patient denies shortness of breath, fevers, chills, chest pain, nausea, vomiting, melena, hematochezia, hematemesis, dizziness, orthostasis, blurry vision, fatigue, or malaise. Hospital Course Hospital Course: The patient was transferred to the floor. He was started on intravenous antibiotics and pain medication for polypectomy syndrome. The patient slowly improved. He began having bowel function. He was started on diet. By 08/08/2018, he was doing well, ambulating, tolerating a diet, and he was afebrile. At this time it was felt that he had reached maximal hospital benefit and was fit for discharge. Physical Exam Vital Signs: Temp Pulse Resp BP Pulse Ox 98.8 F 75 15 119/78 99 08/08/18 15:32 08/08/18 15:32 08/08/18 15:32 08/08/18 15:32 08/08/18 15:32 Intake & Output 08/07/18 08/08/18 08/09/18 06:59 06:59 06:59 Intake Total 1300 1300 1000 Output Total 1000 350 Balance 263 970 1818 Weight 77 kg 81.5 kg Results Laboratory Results: 08/08/18 06:51 08/08/18 06:51 08/08/18 08/08/18 06:51 06:51 WBC 7.0 RBC 4.81 Hgb 13.4 L Hct 38.2 MCV 79 L MCH 27.8 MCHC 35.0 RDW 12.6 Plt Count 221 Seg Neutrophils % 55.8 Lymphocytes % 30.3 Monocytes % 9.3 Eosinophils % 4.0 Basophils % 0.6 Absolute Neutrophils 3.9 Absolute Lymphocytes 2.1 Absolute Monocytes 0.7 Absolute Eosinophils 0.3 Absolute Basophils 0.0 Sodium 141.1 Potassium 3.9 Chloride 104 Carbon Dioxide 31 H Anion Gap 6 BUN 6 L Creatinine 1.26 H Est GFR ( Amer) > 60 Est GFR (Non-Af Amer) > 60 Glucose 82 Calcium 9.3 Impressions: Abdomen/Pelvis CT 08/06/18 00:00 IMPRESSION: Acute sigmoid diverticulitis. No abscess, free air, or free fluid. TECHNICAL DOCUMENTATION: Quality ID # [id number]: Final reports with documentation of one or more dose reduction techniques (e.g., Automated exposure control, adjustment of the mA and/or kV according to patient size, use of iterative reconstruction technique) copyright 2011 [employer]- All Rights Reserved Qualifiers - * PATIENT BEING DISCHARGED WITH ANY OF THE FOLLOWING DIAGNOSIS: No Plan Discharge Plan: Discharge home. Diet as tolerated. Activity: Nonstrenuous. Follow-up with me in 7-10 days. Augmentin 875 mg p.o. twice daily times 5 days. Flagyl 500 mg p.o. 3 times daily times 5 days. [place] 10/325 mg p.o. every 6 hours as needed for pain.
[2018-08-08 19:10] VITALS: BP 130/74
== END 2018-08-08 20:02 | disposition home or self-care (01) | DRG 392 ==
LOC: ER 16:48 → EH 18:49 → 2N 21:34 → OBSVTOIN 08-08 11:56
PROVIDERS: ATTEND Surgery
DX: R10.31 Right lower quadrant pain (principal); K57.32 Diverticulitis of large intestine without perforation or abscess without bleeding; F17.210 Nicotine dependence, cigarettes, uncomplicated; Z98.890 Other specified postprocedural states; Z86.010 Personal history of colon polyps; Z91.013 Allergy to seafood; Z23 Encounter for immunization
CPT/HCPCS: 36415; 74177; 80048; 85025; 87040; 90471; 90686; 94799; 96361; 96374; 96375; 99285; G0008; J1170; J1200; J2270; J2405; J2543

== ENCOUNTER → 2018-08-06 | Outpatient (CLI) | payer BC | LOC: RAD 15:35 | PROVIDERS: ATTEND Surgery | DX: R10.31 Right lower quadrant pain (principal); Z53.8 Procedure and treatment not carried out for other reasons ==

== ENCOUNTER 2018-10-03 06:36 | Inpatient (IN) | payer BC ==
[2018-09-26 09:52] LABS: HEMATOCRIT 42.5 % (37.9-51.0); HEMOGLOBIN 14.8 g/dL (13.5-17.0); MEAN CORPUSCULAR HEMOGLOBIN 28.2 pg (27.0-33.4); MEAN CORPUSCULAR HGB CONC 34.9 g/dL (32.0-36.0); MEAN CORPUSCULAR VOLUME 81 fl (80-97); PLATELET COUNT 264 10^3/uL (150-450); RED BLOOD COUNT 5.27 10^6/uL (4.35-5.55); RED CELL DISTRIBUTION WIDTH 13.7 % (11.5-14.0); WHITE BLOOD COUNT 5.4 10^3/uL (4.0-10.5)
--- NOTE | 2018-09-26 10:04 | RADIOLOGY REPORT (SQ) ---
EXAM DESCRIPTION: CHEST PA/LATERAL COMPLETED DATE/TIME: 09/26/2018 9:57 am REASON FOR STUDY: PRE-OP COMPARISON: 01/13/2016. EXAM PARAMETERS: NUMBER OF VIEWS: two views TECHNIQUE: Digital Frontal and Lateral radiographic views of the chest acquired. RADIATION DOSE: NA LIMITATIONS: none FINDINGS: LUNGS AND PLEURA: No opacities, masses or pneumothorax. No pleural effusion. MEDIASTINUM AND HILAR STRUCTURES: No masses or contour abnormalities. HEART AND VASCULAR STRUCTURES: Heart normal size. No evidence for failure. BONES: No acute findings. HARDWARE: None in the chest. OTHER: No other significant finding. IMPRESSION: NO SIGNIFICANT RADIOGRAPHIC FINDING IN THE CHEST. TECHNICAL DOCUMENTATION: JOB ID: [id number] [email or web address]- All Rights Reserved Reading location - IP/workstation name: [email or web address]
[2018-09-26 10:31] LABS: ANION GAP 12 (5-19); BLOOD UREA NITROGEN 6 mg/dL (7-20); CALCIUM 9.5 mg/dL (8.4-10.2); CARBON DIOXIDE 27 mmol/L (22-30); CHLORIDE 103 mmol/L (98-107); GLUCOSE 183 mg/dL (75-110)
[~2018-10-03 06:36] MED LIST changes: +CEFOXITIN SODIUM 2 GM in DEXTROSE 5%-WATER 100 ML IV PRN; +IBUPROFEN 800 MG in NORMAL SALINE 250 ML IV PRN
[2018-10-03] MEDS ORDERED: BUPIVACAINE HCL 0.25 % INJ/PF (2.5 MG/1 ML) 30 ML VIAL ONE (09:20)
[2018-10-03] MEDS ORDERED: MORPHINE SULFATE 10 MG/ML INJ ONE (09:28)
[2018-10-03] MEDS ORDERED: FENTANYL CITRATE INJ/PF 100 MCG/2 ML AMPUL ONE (09:28)
[2018-10-03] MEDS ORDERED: KETOROLAC TROMETHAMINE 60 MG/2 ML SDV ONE (09:28)
[2018-10-03] MEDS ORDERED: DEXAMETHASONE SOD PHOSPHATE INJ 4 MG/1 ML VIAL ONE (09:28)
[2018-10-03] MEDS ORDERED: EPHEDRINE SULFATE INJ 50 MG/1 ML AMPULE ONE (09:28)
[2018-10-03] MEDS ORDERED: ONDANSETRON HCL INJ/PF 4 MG/2 ML SDV ONE (09:28)
[2018-10-03] MEDS ORDERED: MIDAZOLAM 2 MG/2 ML INJ ONE (09:28)
[2018-10-03] MEDS ORDERED: ACETAMINOPHEN 1,000 MG/100 ML RTUPB IV ONE (09:29)
[2018-10-03] MEDS ORDERED: PROPOFOL INJ 200 MG/20 ML VIAL IV ONE (09:29)
[2018-10-03] MEDS ORDERED: GLYCOPYRROLATE 1 MG/5 ML SYRINGE ONE (10:06)
[2018-10-03] MEDS ORDERED: ROCURONIUM BROMIDE INJ 50 MG/5 ML VIAL IV ONE (10:06)
[2018-10-03] MEDS ORDERED: SUCCINYLCHOLINE CHLORIDE INJ 200 MG/10 ML VIAL ONE (10:06)
[2018-10-03] MEDS ORDERED: NEOSTIGMINE METHYLSULFATE 10 MG/10 ML VIAL ONE (10:06)
[2018-10-03] MEDS ORDERED: HYDRALAZINE HCL INJ/PF 20 MG/1 ML SDV ONE (11:10)
[2018-10-03] MEDS ORDERED: METOPROLOL TARTRATE PF/INJ 5 MG/5 ML SDV IV ONE (11:11)
[2018-10-03] MEDS ORDERED: FENTANYL CITRATE INJ/PF 100 MCG/2 ML AMPUL IV PRN ×3 (11:24)
[2018-10-03] MEDS ORDERED: MEPERIDINE HCL/PF INJ 25 MG/1 ML DISP.SYRIN IV PRN (11:24)
[2018-10-03] MEDS ORDERED: DIPHENHYDRAMINE HCL 50 MG/ML VIAL IV PRN (11:24)
[2018-10-03] MEDS ORDERED: PROMETHAZINE HCL INJ 25 MG/1 ML VIAL IV PRN ×2 (11:24)
[2018-10-03] MEDS ORDERED: MORPHINE SULFATE 10 MG/ML INJ IV PRN (11:24)
[2018-10-03] MEDS ORDERED: OXYCODONE-ACETAMINOPHEN 5-325 MG TABLET PO PRN ×2 (11:24)
[2018-10-03] MEDS ORDERED: ONDANSETRON HCL INJ/PF 4 MG/2 ML SDV IV PRN ×2 (11:24→15:45)
[2018-10-03] MEDS: FENTANYL CITRATE INJ/PF 100 MCG/2 ML AMPUL ONE ×2 (15:35→15:40)
[2018-10-03] MEDS ORDERED: HYDROMORPHONE HCL INJ/PF 2 MG/ML AMPULE ONE (16:11)
[2018-10-03] MEDS ORDERED: OXYCODONE-ACETAMINOPHEN 5-325 MG TABLET ONE (16:41)
[2018-10-03] MEDS ORDERED: HYDRALAZINE HCL INJ/PF 20 MG/1 ML SDV IV PRN (18:29)
--- NOTE | 2018-10-03 18:29 | Operative Report ---
Nonrecallable Operative Report DATE OF SURGERY: 10/03/18 PREOPERATIVE DIAGNOSIS: Recurrent sigmoid diverticulitis POSTOPERATIVE DIAGNOSIS: same as above OPERATION: 1. Robot assisted laparoscopic sigmoid colon resection with robot sewn colorectal anastomosis. 2. Flexible sigmoidoscopy SURGEON: LENIN BULLOCK SNAKER DRIVING HORSES: JOANIE WILL ANESTHESIA: GA TISSUE REMOVED OR ALTERED: sigmoid colon COMPLICATIONS: none apparent ESTIMATED BLOOD LOSS: 50cc PROCEDURE: Drain: 15 Fr round jacques drain in the pelvis Procedure in detail: After informed consent was obtained, the patient was brought to the operating room and laid in the supine position. The area of the abdomen was prepped and draped in a normal sterile fashion. An incision was created approximately 2 cm above and lateral to the umbilicus on the right. Dissection was carried down to the anterior abdominal wall fascia using blunt dissection. The anterior sheath was incised sharply. Retractors were used to retract the rectus muscle, and the posterior sheath was incised sharply. The balloon trocar was inserted, and pneumoperitoneum was achieved. A 12 mm right lower quadrant robotic trocar was placed under direct laparoscopic visualization. Another 8 mm left lower quadrant trocar was placed and a left lateral 8 mm trocar. These were all done under direct laparoscopic visualization. A 5 mm accounting manager assistant controller trocar was placed in the right upper quadrant. The robot was then brought over the patient and docked appropriately. I then assumed my position at the surgeon's console. A dense inflammatory reaction was found from the sigmoid colon to the anterior pelvis. Dissection was begun in a medial to lateral fashion. The mesentery was scored over the sacral promontory. The mesentery was elevated anteriorly and blunt dissection was used to identify the ureter in the left pelvis. Once the ureter was identified the sigmoid and descending colon were freed from the lateral pelvic sidewall. The distal descending colon was freely mobile, however the sigmoid colon was densely adherent to the anterior pelvis. With some difficulty the sigmoid colon was freed from the left lateral pelvic sidewall and the anterior pelvis. This was done after visualizing the ureter along its course and sparing it from injury. After the sigmoid colon was freed, the bladder was instilled with 200 cc of fluid, and no colovesical fistula could be identified. Once the sigmoid colon was completely freed, the dissection was t aken to the rectosigmoid junction. The rectosigmoid junction was then divided using the robotic stapler. Next, the mesentery was divided immediately adjacent to the bowel with the robotic vessel sealer. Next, the distal descending colon was divided using robotic scissors. There was some spillage of stool during this maneuver. The sigmoid colon was at this time completely freed and mobile. The staple line on the rectum was then excised using robotic scissors. A ring forcep was inserted into the rectum and used to grasp the freed sigmoid colon. The specimen was then extracted through the rectum. It passed easily out the rectum. Next, the descending colon was brought in apposition to the rectum. No EEA staplers were available for use due to a product recall. Secondary to this, a robotic sewn anastomosis was performed. The posterior layer of Lembert sutures was placed using 3-0 Vicryl on an SH needle. After the posterior layer was completed, the inner layer was sewn circumferentially using 20V lock suture in simple running fashion. Next, the anterior Lembert sutures were placed, also using 3-0 Vicryl suture on SH needles. Once this was completed, a flexible sigmoidoscopy was undertaken to test the anastomosis. The colon was clamped proximal to the anastomosis. The flexible endoscope was inserted into the rectum and air was insufflated into the rectum. The scope was passed up to the anastomosis. The scope easily passed through the anastomosis, confirming that there was no significant stricture. No air was found to leak out of the anastomosis. Air was found to leak out of the anus, around the scope. This confirmed that the anastomosis was air and watertight. Once this was confirmed the abdomen was copiously irrigated and suctioned until the effluent was clear. The robot was undocked, and I scrubbed back into the case. A 15 Portuguese round Jacques drain was placed through the left lower quadrant trocar and situated in the pelvis, at the level of the anastomosis. This drain was sutured to the skin using 2-0 nylon suture. Next, the right lower quadrant 12 mm trocar site fascia was closed using 0 Vicryl suture and the Endo Close device. The suture was placed in [id number] fashion. Next, the left lateral trocar was removed. The site was closed with a single interrupted 0 Vicryl suture using the Endo Close device. Next, the 5 mm trocar was removed. The 12 mm balloon trocar was removed, and pneumoperitoneum was relieved. Next, the 12 mm trocar site fascia was closed using 0 Vicryl suture in [id number] fashion, under direct vision. The overlying skin was closed using interrupted 4-0 Vicryl Rapide suture. Dressings were then placed, and the procedure was concluded. All sponge, instrument, and needle counts were correct x2. Condition: Stable. Joanie Will PA-C was scrubbed and present the entirety of the procedure. She assisted with all portions of the procedure including placement of the trochars, docking of the robot, exchanging of the robotic instruments, closure of the fascia, and closure of the skin.
[2018-10-03] MEDS: DEXTROSE 5%-LACTATED RINGERS 1,000 ML IV PRN (18:39)
[2018-10-03] MEDS: CEFOXITIN SODIUM 2 GM in DEXTROSE 5%-WATER 100 ML IV SCH (18:39)
[2018-10-03] MEDS: NICOTINE 14 MG/24 HR PATCH.TD24 TD SCH (20:37)
[2018-10-03] MEDS: OXYCODONE-ACETAMINOPHEN 5-325 MG TABLET PO PRN (20:37)
[2018-10-03] MEDS: KETOROLAC TROMETHAMINE INJ/PF 30 MG/1 ML SDV IV SCH (21:12)
[2018-10-03] MEDS: FAMOTIDINE INJ/PF 20 MG/2 ML SDV IV SCH (21:12)
[2018-10-04] MEDS: HYDROMORPHONE HCL INJ/PF 2 MG/ML AMPULE IV PRN ×3 (00:15→18:51)
[2018-10-04] MEDS: CEFOXITIN SODIUM 2 GM in DEXTROSE 5%-WATER 100 ML IV SCH ×3 (01:40→17:00)
[2018-10-04] MEDS: OXYCODONE-ACETAMINOPHEN 5-325 MG TABLET PO PRN ×3 (01:41→16:00)
[2018-10-04] MEDS: KETOROLAC TROMETHAMINE INJ/PF 30 MG/1 ML SDV IV SCH ×3 (05:42→21:10)
--- NOTE | 2018-10-04 06:41 | PDOC PROGRESS REPORT ---
Subjective Progress Note for:: 10/04/18 Reason For Visit: K57.92 DVTRCLI OF INTEST, PART UNSP, W/O PERF OR A Physical Exam Vital Signs: Temp Pulse Resp BP Pulse Ox 98.4 F 86 22 H 138/78 H 100 10/04/18 03:39 10/04/18 03:39 10/04/18 03:39 10/04/18 03:39 10/04/18 03:39 Intake & Output 10/02/18 10/03/18 10/04/18 06:59 06:59 06:59 Intake Total 6650 Output Total 5055 Balance 1595 Weight 83.3 kg Results Laboratory Results: 09/26/18 09:23 09/26/18 09:23 Impressions: Chest X-Ray 09/26/18 09:43 IMPRESSION: NO SIGNIFICANT RADIOGRAPHIC FINDING IN THE CHEST. Assessment & Plan - Diagnosis (1) Diverticulitis large intestine Qualifiers: Diverticulitis bleeding: unspecified bleeding status Diverticulitis complication: unspecified complication status Qualified Code(s): K57.32 - Diverticulitis of large intestine without perforation or abscess without bleeding Is this a current diagnosis for this admission?: Yes - Plan Summary Plan Summary: 42 y/o M s/p robot assisted laparoscopic sigmoid colon resection for recurrent diverticulitis. The pt reports pain this am. He has not yet been out of bed. OOB today. D/c garcia catheter. Aggressive pulmonary toilet. Cont Mefoxin due to intra-op spillage of stool. awaiting bowel function --> cont liquids for now. Labs pending.
[2018-10-04 07:40] LABS: ABSOLUTE LYMPHOCYTES (AUTO) 1.7 10^3/uL (0.5-4.7); ABSOLUTE MONOCYTES (AUTO) 0.8 10^3/uL (0.1-1.4); ABSOLUTE NEUT (AUTO) 13.8 10^3/uL (1.7-8.2); BASOPHILS % (AUTO) 0.1 % (0-2); HEMATOCRIT 40.6 % (37.9-51.0); LYMPHOCYTES % (AUTO) 10.3 % (13-45); MEAN CORPUSCULAR HEMOGLOBIN 27.3 pg (27.0-33.4); MEAN CORPUSCULAR HGB CONC 34.4 g/dL (32.0-36.0); MEAN CORPUSCULAR VOLUME 79 fl (80-97); MONOCYTES % (AUTO) 5.1 % (3-13); PLATELET COUNT 228 10^3/uL (150-450); RED BLOOD COUNT 5.12 10^6/uL (4.35-5.55); RED CELL DISTRIBUTION WIDTH 13.4 % (11.5-14.0); SEGMENTED NEUTROPHILS % (AUTO) 84.5 % (42-78); TOTAL CELLS COUNTED % (AUTO) 100 %; WHITE BLOOD COUNT 16.4 10^3/uL (4.0-10.5)
[2018-10-04 07:59] LABS: ANION GAP 11 (5-19); BLOOD UREA NITROGEN 11 mg/dL (7-20); CALCIUM 9.1 mg/dL (8.4-10.2); CARBON DIOXIDE 27 mmol/L (22-30); CHLORIDE 104 mmol/L (98-107); GLUCOSE 99 mg/dL (75-110); POTASSIUM 3.8 mmol/L (3.6-5.0); SODIUM 141.8 mmol/L (137-145)
[2018-10-04] MEDS: DEXTROSE 5%-LACTATED RINGERS 1,000 ML IV PRN (09:10)
[2018-10-04] MEDS: NICOTINE 14 MG/24 HR PATCH.TD24 TD SCH (09:11)
[2018-10-04] MEDS: ENOXAPARIN SODIUM INJ 40 MG/0.4 ML DISP.SYRIN SUBCUT SCH (09:12)
[2018-10-04] MEDS: FAMOTIDINE INJ/PF 20 MG/2 ML SDV IV SCH ×2 (09:12→21:10)
[2018-10-05] MEDS: DEXTROSE 5%-LACTATED RINGERS 1,000 ML IV PRN (03:54)
[2018-10-05] MEDS ORDERED: CEFOXITIN SODIUM 2 GM in DEXTROSE 5%-WATER 100 ML IV ONE ×2 (04:00→04:30)
[2018-10-05] MEDS: CEFOXITIN SODIUM 2 GM in DEXTROSE 5%-WATER 100 ML IV SCH ×3 (04:01→22:22)
[2018-10-05] MEDS: OXYCODONE-ACETAMINOPHEN 5-325 MG TABLET PO PRN (04:46)
[2018-10-05] MEDS: KETOROLAC TROMETHAMINE INJ/PF 30 MG/1 ML SDV IV SCH ×3 (05:20→21:06)
[2018-10-05 05:46] LABS: ABSOLUTE EOSINOPHILS # (AUTO) 0.2 10^3/uL (0.0-0.6); ABSOLUTE LYMPHOCYTES (AUTO) 1.1 10^3/uL (0.5-4.7); ABSOLUTE MONOCYTES (AUTO) 0.7 10^3/uL (0.1-1.4); ABSOLUTE NEUT (AUTO) 12.2 10^3/uL (1.7-8.2); BASOPHILS % (AUTO) 0.2 % (0-2); EOSINOPHILS % (AUTO) 1.1 % (0-6); HEMATOCRIT 37.2 % (37.9-51.0); HEMOGLOBIN 12.8 g/dL (13.5-17.0); MEAN CORPUSCULAR HEMOGLOBIN 27.4 pg (27.0-33.4); MEAN CORPUSCULAR HGB CONC 34.4 g/dL (32.0-36.0); MEAN CORPUSCULAR VOLUME 80 fl (80-97); MONOCYTES % (AUTO) 5.2 % (3-13); PLATELET COUNT 197 10^3/uL (150-450); RED BLOOD COUNT 4.66 10^6/uL (4.35-5.55); RED CELL DISTRIBUTION WIDTH 13.2 % (11.5-14.0); SEGMENTED NEUTROPHILS % (AUTO) 85.5 % (42-78); TOTAL CELLS COUNTED % (AUTO) 100 %; WHITE BLOOD COUNT 14.2 10^3/uL (4.0-10.5)
[2018-10-05 06:06] LABS: ANION GAP 10 (5-19); BLOOD UREA NITROGEN 9 mg/dL (7-20); CARBON DIOXIDE 28 mmol/L (22-30); CHLORIDE 101 mmol/L (98-107); GLUCOSE 111 mg/dL (75-110); POTASSIUM 3.5 mmol/L (3.6-5.0); SODIUM 138.7 mmol/L (137-145)
[2018-10-05] MEDS ORDERED: POTASSI CL 20 MEQ/50 ML RIDER 20 MEQ/50 ML RTUPB IV ONE (07:05)
[2018-10-05] MEDS ORDERED: DEXTROSE 50%-WATER 25 GM/50 ML DISP.SYRIN IV PRN ×2 (08:26)
[2018-10-05] MEDS ORDERED: DEXTROSE 40% GEL 15 GM TUBE PO PRN ×2 (08:26)
[2018-10-05] MEDS ORDERED: GLUCAGON,HUMAN RECOMB 1 MG INJ SUBCUT PRN (08:26)
[2018-10-05] MEDS: RINGERS SOLUTION,LACTATED 1,000 ML IV PRN ×2 (09:00→19:33)
[2018-10-05] MEDS: HYDROMORPHONE HCL INJ/PF 2 MG/ML AMPULE IV PRN ×3 (09:12→19:32)
[2018-10-05] MEDS: FAMOTIDINE INJ/PF 20 MG/2 ML SDV IV SCH ×2 (10:52→22:22)
[2018-10-05] MEDS: ENOXAPARIN SODIUM INJ 40 MG/0.4 ML DISP.SYRIN SUBCUT SCH (10:53)
[2018-10-05] MEDS: NICOTINE 14 MG/24 HR PATCH.TD24 TD SCH (10:53)
--- NOTE | 2018-10-05 11:57 | PDOC PROGRESS REPORT ---
Subjective Progress Note for:: 10/05/18 Reason For Visit: K57.92 DVTRCLI OF INTEST, PART UNSP, W/O PERF OR A Physical Exam Vital Signs: Temp Pulse Resp BP Pulse Ox 100.6 F H 103 H 16 153/85 H 94 10/05/18 10:44 10/05/18 10:44 10/05/18 10:44 10/05/18 10:44 10/05/18 10:44 Intake & Output 10/04/18 10/05/18 10/06/18 06:59 06:59 06:59 Intake Total 7650 3200 Output Total 5055 1575 500 Balance 2595 1625 -500 Weight 83.3 kg 78.3 kg Results Laboratory Results: 10/05/18 05:07 10/05/18 05:07 10/05/18 10/05/18 05:07 05:07 WBC 14.2 H RBC 4.66 Hgb 12.8 L Hct 37.2 L MCV 80 MCH 27.4 MCHC 34.4 RDW 13.2 Plt Count 197 Seg Neutrophils % 85.5 H Lymphocytes % 8.0 L Monocytes % 5.2 Eosinophils % 1.1 Basophils % 0.2 Absolute Neutrophils 12.2 H Absolute Lymphocytes 1.1 Absolute Monocytes 0.7 Absolute Eosinophils 0.2 Absolute Basophils 0.0 Sodium 138.7 Potassium 3.5 L Chloride 101 Carbon Dioxide 28 Anion Gap 10 BUN 9 Creatinine 1.08 Est GFR ( Amer) > 60 Est GFR (Non-Af Amer) > 60 Glucose 111 H Calcium 9.0 Impressions: Chest X-Ray 09/26/18 09:43 IMPRESSION: NO SIGNIFICANT RADIOGRAPHIC FINDING IN THE CHEST. Assessment & Plan - Diagnosis (1) Diverticulitis large intestine Qualifiers: Diverticulitis bleeding: unspecified bleeding status Diverticulitis complication: unspecified complication status Qualified Code(s): K57.32 - Diverticulitis of large intestine without perforation or abscess without bleeding Is this a current diagnosis for this admission?: Yes - Plan Summary Plan Summary: 42 y/o M s/p robot assisted laparoscopic sigmoid colon resection for recurrent diverticulitis. The pt still reports pain. He has been out of bed twice since yesterday. The patient is urinating without difficulty. The nurse reports low- grade fevers this morning. Patient reports that he is very distended. He has been drinking "lots of water to stay hydrated". I have encouraged the patient to quit drinking water. The patient reports a small amount of flatus this morning. N.p.o. for now. Okay for medications, ice chips, and popsicles. OOB/ambulate. Lovenox for DVT prophylaxis. Aggressive pulmonary toilet. Cont Mefoxin due to intra-op spillage of stool. awaiting normal bowel function. Hypokalemia: Replace. Continue with current pain medication regimen.
[2018-10-06] MEDS: HYDROMORPHONE HCL INJ/PF 2 MG/ML AMPULE IV PRN ×3 (02:40→21:27)
[2018-10-06] MEDS: CEFOXITIN SODIUM 2 GM in DEXTROSE 5%-WATER 100 ML IV SCH ×3 (05:39→22:56)
[2018-10-06] MEDS: KETOROLAC TROMETHAMINE INJ/PF 30 MG/1 ML SDV IV SCH ×3 (05:39→22:55)
[2018-10-06] MEDS: RINGERS SOLUTION,LACTATED 1,000 ML IV PRN ×2 (05:40→14:14)
[2018-10-06 05:48] LABS: ABSOLUTE EOSINOPHILS # (AUTO) 0.4 10^3/uL (0.0-0.6); ABSOLUTE LYMPHOCYTES (AUTO) 1.6 10^3/uL (0.5-4.7); ABSOLUTE MONOCYTES (AUTO) 0.8 10^3/uL (0.1-1.4); ABSOLUTE NEUT (AUTO) 10.6 10^3/uL (1.7-8.2); BASOPHILS % (AUTO) 0.3 % (0-2); EOSINOPHILS % (AUTO) 2.8 % (0-6); HEMATOCRIT 34.4 % (37.9-51.0); LYMPHOCYTES % (AUTO) 11.9 % (13-45); MEAN CORPUSCULAR HEMOGLOBIN 27.4 pg (27.0-33.4); MEAN CORPUSCULAR VOLUME 78 fl (80-97); MONOCYTES % (AUTO) 6.1 % (3-13); PLATELET COUNT 201 10^3/uL (150-450); RED CELL DISTRIBUTION WIDTH 12.8 % (11.5-14.0); SEGMENTED NEUTROPHILS % (AUTO) 78.9 % (42-78); TOTAL CELLS COUNTED % (AUTO) 100 %; WHITE BLOOD COUNT 13.5 10^3/uL (4.0-10.5)
[2018-10-06 06:17] LABS: ANION GAP 13 (5-19); BLOOD UREA NITROGEN 12 mg/dL (7-20); CALCIUM 8.8 mg/dL (8.4-10.2); CARBON DIOXIDE 25 mmol/L (22-30); CHLORIDE 102 mmol/L (98-107); GLUCOSE 79 mg/dL (75-110); POTASSIUM 3.4 mmol/L (3.6-5.0); SODIUM 139.8 mmol/L (137-145)
[2018-10-06] MEDS ORDERED: POTASSI CL 20 MEQ/50 ML RIDER 20 MEQ/50 ML RTUPB IV ONE (08:00)
--- NOTE | 2018-10-06 08:46 | PDOC PROGRESS REPORT ---
Subjective Progress Note for:: 10/06/18 Reason For Visit: K57.92 DVTRCLI OF INTEST, PART UNSP, W/O PERF OR A Physical Exam Vital Signs: Temp Pulse Resp BP Pulse Ox 99.0 F 75 20 150/77 H 96 10/06/18 07:51 10/06/18 07:51 10/06/18 07:51 10/06/18 07:51 10/06/18 07:51 Intake & Output 10/05/18 10/06/18 10/07/18 06:59 06:59 06:59 Intake Total 3200 2860 Output Total 1575 1965 Balance 1625 895 Weight 78.3 kg Results Laboratory Results: 10/06/18 05:24 10/06/18 05:24 10/06/18 10/06/18 05:24 05:24 WBC 13.5 H RBC 4.40 Hgb 12.0 L Hct 34.4 L MCV 78 L MCH 27.4 MCHC 35.0 RDW 12.8 Plt Count 201 Seg Neutrophils % 78.9 H Lymphocytes % 11.9 L Monocytes % 6.1 Eosinophils % 2.8 Basophils % 0.3 Absolute Neutrophils 10.6 H Absolute Lymphocytes 1.6 Absolute Monocytes 0.8 Absolute Eosinophils 0.4 Absolute Basophils 0.0 Sodium 139.8 Potassium 3.4 L Chloride 102 Carbon Dioxide 25 Anion Gap 13 BUN 12 Creatinine 0.96 Est GFR ( Amer) > 60 Est GFR (Non-Af Amer) > 60 Glucose 79 Calcium 8.8 Impressions: Chest X-Ray 09/26/18 09:43 IMPRESSION: NO SIGNIFICANT RADIOGRAPHIC FINDING IN THE CHEST. Assessment & Plan - Diagnosis (1) Diverticulitis large intestine Qualifiers: Diverticulitis bleeding: unspecified bleeding status Diverticulitis complication: unspecified complication status Qualified Code(s): K57.32 - Diverticulitis of large intestine without perforation or abscess without bleeding Is this a current diagnosis for this admission?: Yes - Plan Summary Plan Summary: 42 y/o M s/p robot assisted laparoscopic sigmoid colon resection for recurrent diverticulitis. The pt's pain is improving. He has been out of bed and ambulated in the hallway. The patient is urinating without difficulty. The nurse reports fever last night, however it subsided. Patient reports that his distention is improving. The patient reports passing a large amount of flatus overnight. He has not yet had a bowel movement. His TATIANNA is productive of a small amount of serosanguineous fluid. Bowel function improved: Restart full liquid diet. OOB/ambulate. Lovenox for DVT prophylaxis. Aggressive pulmonary toilet. Cont Mefoxin due to intra-op spillage of stool. Leukocytosis improving. Awaiting normal bowel function. Hypokalemia: Replace again today. Check magnesium tomorrow. Continue with current pain medication regimen.
[2018-10-06] MEDS: NICOTINE 14 MG/24 HR PATCH.TD24 TD SCH (10:22)
[2018-10-06] MEDS: ENOXAPARIN SODIUM INJ 40 MG/0.4 ML DISP.SYRIN SUBCUT SCH (10:22)
[2018-10-06] MEDS: FAMOTIDINE INJ/PF 20 MG/2 ML SDV IV SCH ×2 (10:23→22:55)
[2018-10-06] MEDS: OXYCODONE-ACETAMINOPHEN 5-325 MG TABLET PO PRN (17:08)
--- NOTE | 2018-10-06 17:46 | RADIOLOGY REPORT (SQ) ---
EXAM DESCRIPTION: KUB/ABDOMEN (SINGLE VIEW) COMPLETED DATE/TIME: 10/06/2018 5:30 pm REASON FOR STUDY: abdominal distention, portable, upright K57.92 DVTRCLI OF INTEST, PART UNSP, W/O PERF OR ABSCESS W/O Z86.010 PERSONAL HISTORY OF COLONIC POLYPS COMPARISON: None. NUMBER OF VIEWS: One view. TECHNIQUE: Supine radiographic image of the abdomen acquired. LIMITATIONS: None. FINDINGS: BOWEL GAS PATTERN: Scattered non-dilated small bowel loops. No obstructive pattern. CALCIFICATIONS: No suspicious calcifications. SOFT TISSUES: No gross mass or suggestion of organomegaly. HARDWARE: Catheter tubing over the lower abdomen. BONES: No acute fracture. No worrisome bone lesions. OTHER: No other significant finding. IMPRESSION: NON-SPECIFIC BOWEL GAS PATTERN WITHOUT EVIDENCE FOR OBSTRUCTION. TECHNICAL DOCUMENTATION: JOB ID: [id number] [employer]- All Rights Reserved Reading location - IP/workstation name: [email or web address]
[2018-10-07] MEDS: RINGERS SOLUTION,LACTATED 1,000 ML IV PRN ×3 (04:39→21:43)
[2018-10-07] MEDS: KETOROLAC TROMETHAMINE INJ/PF 30 MG/1 ML SDV IV SCH ×3 (05:21→21:39)
[2018-10-07] MEDS: CEFOXITIN SODIUM 2 GM in DEXTROSE 5%-WATER 100 ML IV SCH ×3 (05:22→21:38)
[2018-10-07 07:07] LABS: ABSOLUTE EOSINOPHILS # (AUTO) 0.5 10^3/uL (0.0-0.6); ABSOLUTE LYMPHOCYTES (AUTO) 1.1 10^3/uL (0.5-4.7); ABSOLUTE MONOCYTES (AUTO) 0.6 10^3/uL (0.1-1.4); ABSOLUTE NEUT (AUTO) 7.1 10^3/uL (1.7-8.2); BASOPHILS % (AUTO) 0.5 % (0-2); EOSINOPHILS % (AUTO) 5.3 % (0-6); HEMATOCRIT 32.1 % (37.9-51.0); HEMOGLOBIN 11.4 g/dL (13.5-17.0); LYMPHOCYTES % (AUTO) 11.5 % (13-45); MEAN CORPUSCULAR HEMOGLOBIN 27.9 pg (27.0-33.4); MEAN CORPUSCULAR HGB CONC 35.7 g/dL (32.0-36.0); MEAN CORPUSCULAR VOLUME 78 fl (80-97); MONOCYTES % (AUTO) 6.7 % (3-13); PLATELET COUNT 240 10^3/uL (150-450); RED CELL DISTRIBUTION WIDTH 12.5 % (11.5-14.0); TOTAL CELLS COUNTED % (AUTO) 100 %; WHITE BLOOD COUNT 9.4 10^3/uL (4.0-10.5)
[2018-10-07 07:27] LABS: ANION GAP 12 (5-19); BLOOD UREA NITROGEN 10 mg/dL (7-20); CALCIUM 8.5 mg/dL (8.4-10.2); CARBON DIOXIDE 26 mmol/L (22-30); CHLORIDE 99 mmol/L (98-107); GLUCOSE 114 mg/dL (75-110); POTASSIUM 3.5 mmol/L (3.6-5.0); SODIUM 137.1 mmol/L (137-145)
--- NOTE | 2018-10-07 07:44 | PDOC PROGRESS REPORT ---
Subjective Progress Note for:: 10/07/18 Reason For Visit: K57.92 DVTRCLI OF INTEST, PART UNSP, W/O PERF OR A Physical Exam Vital Signs: Temp Pulse Resp BP Pulse Ox 99.7 F 70 18 151/83 H 100 10/07/18 03:02 10/07/18 03:02 10/07/18 03:02 10/07/18 03:02 10/07/18 03:02 Intake & Output 10/06/18 10/07/18 10/08/18 06:59 06:59 06:59 Intake Total 2860 4107 Output Total 1965 1960 Balance 895 2147 Weight 79 kg 82.3 kg Results Laboratory Results: 10/07/18 06:08 10/07/18 06:08 WBC 9.4 RBC 4.10 L Hgb 11.4 L Hct 32.1 L MCV 78 L MCH 27.9 MCHC 35.7 RDW 12.5 Plt Count 240 Seg Neutrophils % 76.0 Lymphocytes % 11.5 L Monocytes % 6.7 Eosinophils % 5.3 Basophils % 0.5 Absolute Neutrophils 7.1 Absolute Lymphocytes 1.1 Absolute Monocytes 0.6 Absolute Eosinophils 0.5 Absolute Basophils 0.0 Impressions: Chest X-Ray 09/26/18 09:43 IMPRESSION: NO SIGNIFICANT RADIOGRAPHIC FINDING IN THE CHEST. KUB X-Ray 10/06/18 15:02 IMPRESSION: NON-SPECIFIC BOWEL GAS PATTERN WITHOUT EVIDENCE FOR OBSTRUCTION. Assessment & Plan - Diagnosis (1) Diverticulitis large intestine Qualifiers: Diverticulitis bleeding: unspecified bleeding status Diverticulitis complication: unspecified complication status Qualified Code(s): K57.32 - Diverticulitis of large intestine without perforation or abscess without bleeding Is this a current diagnosis for this admission?: Yes - Plan Summary Plan Summary: 42 y/o M s/p robot assisted laparoscopic sigmoid colon resection for recurrent diverticulitis. The pt's pain is improving. He has been out of bed and ambulated in the hallway. The patient is urinating without difficulty. Fever improved. Patient reports that his distention has resolved. The patient reports passing a large amounts of flatus. No nausea or vomiting. He has not yet had a bowel movement. His TATIANNA is productive of a small amount of serosanguineous fluid. Bowel function improved, no distention: Advance to regular diet. OOB/ambulate. Lovenox for DVT prophylaxis. Aggressive pulmonary toilet. Cont Mefoxin due to intra-op spillage of stool. Leukocytosis resolved. Awaiting normal bowel function. Labs pending. Continue with current pain medication regimen.
[2018-10-07] MEDS ORDERED: MAGNESIUM SULFATE INJ 8 MEQ/2 ML IV ONE (09:30)
[2018-10-07] MEDS ORDERED: POTASSI CL 20 MEQ/50 ML RIDER 20 MEQ/50 ML RTUPB IV ONE (09:30)
[2018-10-07] MEDS: FAMOTIDINE INJ/PF 20 MG/2 ML SDV IV SCH ×2 (10:12→21:39)
[2018-10-07] MEDS: NICOTINE 14 MG/24 HR PATCH.TD24 TD SCH (10:13)
[2018-10-07] MEDS: ENOXAPARIN SODIUM INJ 40 MG/0.4 ML DISP.SYRIN SUBCUT SCH (10:15)
[2018-10-07] MEDS: MAGNESIUM SULFATE 1 GM/D5W 100 ML IV SCH ×2 (10:15→11:50)
[2018-10-07] MEDS: HYDROMORPHONE HCL INJ/PF 2 MG/ML AMPULE IV PRN ×2 (10:43→17:49)
[2018-10-08] MEDS: OXYCODONE-ACETAMINOPHEN 5-325 MG TABLET PO PRN ×3 (04:33→22:13)
[2018-10-08 05:07] LABS: ABSOLUTE BASOPHILS # (AUTO) 0.1 10^3/uL (0.0-0.2); ABSOLUTE EOSINOPHILS # (AUTO) 0.6 10^3/uL (0.0-0.6); ABSOLUTE LYMPHOCYTES (AUTO) 1.7 10^3/uL (0.5-4.7); ABSOLUTE MONOCYTES (AUTO) 0.7 10^3/uL (0.1-1.4); ABSOLUTE NEUT (AUTO) 5.6 10^3/uL (1.7-8.2); BASOPHILS % (AUTO) 0.6 % (0-2); EOSINOPHILS % (AUTO) 7.2 % (0-6); HEMATOCRIT 37.3 % (37.9-51.0); HEMOGLOBIN 12.7 g/dL (13.5-17.0); LYMPHOCYTES % (AUTO) 19.9 % (13-45); MEAN CORPUSCULAR HEMOGLOBIN 27.5 pg (27.0-33.4); MEAN CORPUSCULAR HGB CONC 34.1 g/dL (32.0-36.0); MEAN CORPUSCULAR VOLUME 81 fl (80-97); MONOCYTES % (AUTO) 8.1 % (3-13); PLATELET COUNT 298 10^3/uL (150-450); RED BLOOD COUNT 4.64 10^6/uL (4.35-5.55); RED CELL DISTRIBUTION WIDTH 13.2 % (11.5-14.0); SEGMENTED NEUTROPHILS % (AUTO) 64.2 % (42-78); TOTAL CELLS COUNTED % (AUTO) 100 %; WHITE BLOOD COUNT 8.7 10^3/uL (4.0-10.5)
[2018-10-08 06:26] LABS: ANION GAP 10 (5-19); BLOOD UREA NITROGEN 7 mg/dL (7-20); CALCIUM 9.1 mg/dL (8.4-10.2); CARBON DIOXIDE 28 mmol/L (22-30); CHLORIDE 103 mmol/L (98-107); GLUCOSE 90 mg/dL (75-110); POTASSIUM 4.3 mmol/L (3.6-5.0); SODIUM 140.5 mmol/L (137-145)
[2018-10-08] MEDS: CEFOXITIN SODIUM 2 GM in DEXTROSE 5%-WATER 100 ML IV SCH ×3 (06:40→22:36)
[2018-10-08] MEDS: KETOROLAC TROMETHAMINE INJ/PF 30 MG/1 ML SDV IV SCH (06:41)
[2018-10-08] MEDS: IBUPROFEN 800 MG TABLET PO SCH ×3 (11:12→18:13)
[2018-10-08] MEDS: FAMOTIDINE 20 MG TABLET PO SCH ×2 (11:13→22:13)
[2018-10-08] MEDS: NICOTINE 14 MG/24 HR PATCH.TD24 TD SCH (11:14)
[2018-10-08] MEDS: DOCUSATE SODIUM 100 MG CAPSULE PO SCH ×2 (11:14→18:14)
[2018-10-08] MEDS: ENOXAPARIN SODIUM INJ 40 MG/0.4 ML DISP.SYRIN SUBCUT SCH (11:14)
--- NOTE | 2018-10-08 13:05 | PDOC PROGRESS REPORT ---
Subjective Progress Note for:: 10/08/18 Reason For Visit: K57.92 DVTRCLI OF INTEST, PART UNSP, W/O PERF OR A Physical Exam Vital Signs: Temp Pulse Resp BP Pulse Ox 98.6 F 64 16 136/75 H 98 10/08/18 07:42 10/08/18 07:42 10/08/18 07:42 10/08/18 07:42 10/08/18 07:42 Intake & Output 10/07/18 10/08/18 10/09/18 06:59 06:59 06:59 Intake Total 4107 2445 100 Output Total 1960 2370 Balance 2147 75 100 Weight 82.3 kg 81.2 kg Results Laboratory Results: 10/08/18 04:11 10/08/18 04:11 10/08/18 10/08/18 04:11 04:11 WBC 8.7 RBC 4.64 Hgb 12.7 L Hct 37.3 L MCV 81 MCH 27.5 MCHC 34.1 RDW 13.2 Plt Count 298 Seg Neutrophils % 64.2 Lymphocytes % 19.9 Monocytes % 8.1 Eosinophils % 7.2 H Basophils % 0.6 Absolute Neutrophils 5.6 Absolute Lymphocytes 1.7 Absolute Monocytes 0.7 Absolute Eosinophils 0.6 Absolute Basophils 0.1 Sodium 140.5 Potassium 4.3 Chloride 103 Carbon Dioxide 28 Anion Gap 10 BUN 7 Creatinine 0.87 Est GFR ( Amer) > 60 Est GFR (Non-Af Amer) > 60 Glucose 90 Calcium 9.1 Magnesium 2.0 Impressions: Chest X-Ray 09/26/18 09:43 IMPRESSION: NO SIGNIFICANT RADIOGRAPHIC FINDING IN THE CHEST. KUB X-Ray 10/06/18 15:02 IMPRESSION: NON-SPECIFIC BOWEL GAS PATTERN WITHOUT EVIDENCE FOR OBSTRUCTION. Assessment & Plan - Diagnosis (1) Diverticulitis large intestine Qualifiers: Diverticulitis bleeding: unspecified bleeding status Diverticulitis complication: unspecified complication status Qualified Code(s): K57.32 - Diverticulitis of large intestine without perforation or abscess without bleeding Is this a current diagnosis for this admission?: Yes - Plan Summary Plan Summary: 42 y/o M s/p robot assisted laparoscopic sigmoid colon resection for recurrent diverticulitis. The pt's pain is improving. He has been out of bed and ambulated in the hallway. The patient is urinating without difficulty. Fever improved. Patient reports that his distention has resolved. The patient reports passing a large amounts of flatus. No nausea or vomiting. He has not yet had a bowel movement. His TATIANNA is productive of a small amount of serosanguineous fluid. Still taking IV pain medications. Bowel function improved, no distention: Cont regular diet. OOB/ambulate. Lovenox for DVT prophylaxis. Aggressive pulmonary toilet. Cont Mefoxin due to intra-op spillage of stool. Leukocytosis resolved. Awaiting normal bowel function. Transition to oral pain meds.
[2018-10-09] MEDS: OXYCODONE-ACETAMINOPHEN 5-325 MG TABLET PO PRN ×2 (03:17→07:48)
[2018-10-09] MEDS: CEFOXITIN SODIUM 2 GM in DEXTROSE 5%-WATER 100 ML IV SCH (05:20)
[2018-10-09] MEDS: IBUPROFEN 800 MG TABLET PO SCH (07:48)
--- NOTE | 2018-10-09 08:13 | PDOC DISCHARGE SUMMARY ---
General - Admit/Disc Date/PCP Admission Date/Primary Care Provider: 10/03/18 06:36 Discharge Date: 10/09/18 - Discharge Diagnosis (1) Diverticulitis large intestine Is this a current diagnosis for this admission?: Yes - Additional Information Resuscitation Status: Full Code Discharge Diet: As Tolerated Discharge Activity: No Lifting Over 10 Pounds, No Lifting/Push/Pulling Home Medications: No Home Medications 09/25/18 History of Present Illness History of Present Illness: KALPESH ERICKSON is a 42 year old male with multiple episodes of diverticulitis. The patient most recently had a flareup 3 to 4 months ago. The patient has elected to undergo elective sigmoid colon resection in an effort to reduce his risk for diverticulitis in the future. The patient was admitted to the hospital and taken to the operating room for robot-assisted sigmoid colon resection with anastomosis. The patient did well from surgery and was taken to the floor in stable condition. Hospital Course Hospital Course: The patient remained on the floor for several days. He had intermittent fevers, however his leukocytosis continuously improved after surgery. The patient began passing flatus and was started on a diet. The patient eventually had a bowel movement. He was transitioned to oral pain medications. By 10/09/2018, the patient was ambulating, tolerating a regular diet, having bowel movements, taking oral pain medications, and it was felt that he had reached maximal hospital benefit. At this time the patient was felt to be medically fit for discharge. Physical Exam Vital Signs: Temp Pulse Resp BP Pulse Ox 98.6 F 70 14 142/91 H 100 10/09/18 03:04 10/09/18 03:04 10/09/18 03:04 10/09/18 03:04 10/09/18 03:04 Intake & Output 10/08/18 10/09/18 10/10/18 06:59 06:59 06:59 Intake Total 2445 1850 Output Total 2370 10 Balance 75 1840 Weight 81.2 kg 81.1 kg Results Laboratory Results: 10/08/18 04:11 10/08/18 04:11 Impressions: Chest X-Ray 09/26/18 09:43 IMPRESSION: NO SIGNIFICANT RADIOGRAPHIC FINDING IN THE CHEST. KUB X-Ray 10/06/18 15:02 IMPRESSION: NON-SPECIFIC BOWEL GAS PATTERN WITHOUT EVIDENCE FOR OBSTRUCTION. Qualifiers - * PATIENT BEING DISCHARGED WITH ANY OF THE FOLLOWING DIAGNOSIS: No Acute Heart Failure Is this a Heart Failure Patient?: No Plan Discharge Plan: Discharge home. Diet as tolerated. Activity: No lifting greater than 10 pounds x 4 weeks after surgery. Follow-up with me in 7 to 10 days. Okay to shower. Percocet 10/325 mg p.o. every 6 hours as needed for pain. Ibuprofen 800 mg p.o. 3 times daily with meals. [id number] Colace 200 mg (2 tabs) p.o. twice daily. No hot tubs or swimming pools x2 weeks. Time Spent: Less than 30 Minutes
[2018-10-09 08:59] VITALS: BP 115/67
== END 2018-10-09 09:12 | disposition home or self-care (01) | DRG 331 ==
LOC: INOR 06:36 → 2N 17:25
PROVIDERS: ADMIT Surgery; ATTEND Surgery
PROC: 8E0W0CZ Robotic Assisted Procedure of Trunk Region, Open Approach (ICD-10-PCS; 2018-10-03)
PROC: 0DTN4ZZ Resection of Sigmoid Colon, Percutaneous Endoscopic Approach (ICD-10-PCS; principal; 2018-10-03 09:00)
DX: K57.20 Diverticulitis of large intestine with perforation and abscess without bleeding (principal); Z86.010 Personal history of colon polyps; Z91.013 Allergy to seafood; F17.210 Nicotine dependence, cigarettes, uncomplicated; E87.6 Hypokalemia
CPT/HCPCS: 36415; 71046; 74018; 790; 80048; 83735; 85025; 85027; 86850; 86900; 86901; 88307; 94799; J0131; J0330; J0360; J0694; J1100; J1170; J1650; J1741; J1885; J2250; J2270; J2405; J2704; J2710; J3010; J3475; J3480; J3490; J7050; J7060; J7120; J7121; S0028